=== PATIENT | male | born 1930 | race Caucasian/White ===

== ENCOUNTER → 2016-10-27 | Outpatient (CLI) | payer MEDICARE, OTHER ==
[~2016-10-27] MED LIST: ASPIRIN CHILDRE81 MG PO; ASPIRIN81 M1 PO; ATIVAN0.5 MG PO; B121000 MCG/2 PO; CARDIZEM CD300 MG PO; CATAPRES0.2 M1 PO; CIPRO500 MG PO; COREG3.125 MG PO; COZAAR50 M1 PO; COZAAR50 MG PO; DOXYCYCLINE100 M3 PO; FLOMAX0.4 MG PO; FUROSEMIDE20 MG PO; HYZAAR 50/12.5M1 TAB PO; JANUVIA50 MG PO; K-Dur 20MEQ20 MEQ PO; K-TAB20 MEQ PO; LANTUS100 U/ML SC; LASIX20 MG PO; LEVAQUIN750 MG PO; LORAZEPAM0.5 MG PO; NITROGLYCERIN0.4 MG PO; PLAVIX75 M1 PO; PLAVIX75 MG PO; PREDNISONE10 MG PO; PROSCAR5 M1 PO; SYNTHROID RP0.1 MG PO; SYNTHROID,LEV112 MCG PO; SYNTHROID0.025 MG PO; TOPROL XL25 MG PO; TOPROL XL50 M1 PO; VITAMIN D50000 I3 PO; XOPENEX0.63 MG INH; ZOCOR40 MG PO
== END | disposition home or self-care (01) ==
LOC: US 14:58
DX: M79.605 Pain in left leg (principal); M79.604 Pain in right leg; R60.0 Localized edema

== ENCOUNTER 2016-12-29 16:11 | Inpatient (IN) | payer MEDICARE, OTHER ==
[~2016-12-29] VITALS: Ht 182.9 cm; Wt 75.8 kg
--- NOTE | ~2016-12-29 | PR ---
[place], [place] PROGRESS NOTE [id number] UNIT #: [id number] ROOM: 409 DOCTOR: CHRISTINA SANCHES MD,KENYA BIRTHDATE: [birth year] DOS: 01/04/2017 SUBJECTIVE: He has been noted without any acute respiratory distress at this time, comfortably resting, sitting on the chair. Denies any abdominal pain. OBJECTIVE: VITAL SIGNS: For the patient which has been recorded showed the temperature noted normal, respiratory rate 18, heart rate 55, blood pressure 122/72-155/82. Pulse oxygen saturation on room air was 96% saturation. HEENT: Shows age-related changes. NECK: Supple. CARDIOVASCULAR SYSTEM: S1, S2 audible. LUNGS: Showed [id number] decreased breath sound in the right lower lung base. ABDOMEN: Soft and nontender. LABORATORY DATA: Cytology of the pleural fluid noted as benign. The chest x-ray that was done for the patient yesterday was reviewed for this patient shows mild recurrence of the small pleural fluid for the patient at this time. Otherwise, the lung remained expanded. IMPRESSION: The patient with negative cytology with an exudative pleural fluid, the etiology remains unclear with history of atrial fibrillation, congestive heart failure and others. PLAN OF TREATMENT: No change in plan of management. No intervention. The patient with recurrent pleural fluid has been noted as the amount of the fluid was noted small. Continue patient on diuretic therapy. Usual care. All other supportive plan of management and care. KENYA VASQUEZ MD CM:PNTRANS [id number] KENYA SANCHES MD 01/04/17 1129 interface
--- NOTE | ~2016-12-29 | CON ---
[place], [place] REPORT OF CONSULTATION NAME: MERVIN SARABIA UNIT #: [id number] ROOM: 409 DOCTOR: STEFANI VICKERS MD BIRTHDATE: [birth year] DOS: HISTORY OF PRESENT ILLNESS: The patient is an 86-year-old gentleman admitted under Dr. Nicole's service and seen at her request. The patient was admitted yesterday following a fall while shopping and in the state of confusion. During the investigation, was also found to have urinary retention. The Medley catheter was therefore placed and was found to have about over 800-900 mL of retention. He had a CT scan of the abdomen performed, which showed bilateral hydronephrosis and also has a pleural effusion. The patient is moderately confused; however, the patient is not able to tell the list of medication, but is found to be on tamsulosin and finasteride. He denies of any surgical intervention. Denies gross hematuria or recurrent UTI or urinary incontinence. PHYSICAL EXAMINATION: GENERAL: He is alert; however, is pleasantly confused. He is time and place. VITAL SIGNS: Stable and he is afebrile. ABDOMEN: Soft, nontender. Bladder not distended. The patient on a Medley catheter draining slightly bloody urine. GENITOURINARY: Scrotal contents are normal. Digital examination shows prostate moderately large size about 20-30 grams with no nodules or an induration suggestive for malignancy. ASSESSMENT: Urinary retention with hydronephrosis, most likely hydronephrosis secondary to chronic bladder outlet obstruction. PLAN: The patient is on a Medley catheter. I will keep the Medley catheter at least for a week. I discussed the overall management and long time management and prognosis with his granddaughter and initially explained to that will follow the list in invasive management such as Medley catheter for a week or two and then give him a trial of voiding. If unable to void, the patient will then have choice of a going through transurethral resection or a maintenance on a Medley catheter or a suprapubic cystostomy. I advised family that I will follow the patient in the office after the discharge from the present hospitalization. We will follow the patient if needed. Otherwise, we will follow him in the office after the discharge. STEFANI VICKERS MD CM:CONSTR:REPORT OF CONSULTATION 1401 12/31/16 0200 interface
--- NOTE | ~2016-12-29 | PR ---
[place], [place] PROGRESS NOTE NAME: MERVIN SARABIA UNIT #: [id number] ROOM: 409 DOCTOR: CHRISTINA SANCHES MD,KENYA BIRTHDATE: [birth year] DOS: 01/02/2017 PULMONARY FOLLOWUP SUBJECTIVE: He has been noted comfortable at this time without any distress. The patient denies symptoms of chest pain. He has been noted comfortable at this time. OBJECTIVE: VITAL SIGNS: Normal temperature, respiratory rate 20, heart rate 88, blood pressure 145/76. The pulse oxygen saturation on room air 96% saturation. HEENT: Examination shows no acute change. NECK: Supple. CARDIOVASCULAR: S1, S2 audible. LUNGS: Noted without any wheezing or crackles. ABDOMEN: Soft, nontender. LABORATORY DATA: There were no labs done today. Cytology of pleural fluid was pending. IMPRESSION: Exudative pleural fluid, status post thoracentesis for the acute respiratory symptoms, which has been noted stable at the present time. PLAN OF TREATMENT: Monitoring results of cytology. Continuation of the previous other medical management and plan of care as previously. Usual care. All other supportive plan of therapy. No change in the treatment at this time will be recommended. Supportive care. KENYA VASQUEZ MD CM:PNTRANS [phone] KENYA SANCHES MD 01/02/172125 interface
--- NOTE | ~2016-12-29 | PR ---
[place], [place] PROGRESS NOTE [id number] #: [id number] ROOM: 409 DOCTOR: CHRISTINA SANCHES MD,KENYA BIRTHDATE: [birth year] DOS: 01/05/2017 PULMONARY PROGRESS NOTE SUBJECTIVE: The patient has been noted comfortably resting in his bed, has Medley catheter in place. He has not been noted with any symptoms of chest pain or any abdominal pain. OBJECTIVE: VITAL SIGNS: Normal temperature, respiratory rate 20, heart rate 85, blood pressure 144/86. The pulse oxygen saturation on room air 95% saturation. HEENT: Examination shows no acute change. NECK: Supple. CARDIOVASCULAR SYSTEM: S1, S2 audible. LUNGS: Noted for this patient with decreased breath sounds in the right lower lung. ABDOMEN: Soft, nontender. LABORATORY DATA: No new labs were done today. The chest x-ray yesterday shows some recurrence of the pleural fluid; however, today shows some recurrence of right pleural fluid for the patient; however, the fluid was not noted significantly large. IMPRESSION: 1. Exudative pleural fluid, status post thoracentesis, negative malignancy for the patient, exact etiology to be determined. 2. History of congestive heart failure, treated with diuretics. PLAN OF TREATMENT: No changes from the pulmonary standpoint. Continue the current therapy, plan of care. Usual care, other supportive plan of management and treatments. KENYA VASQUEZ MD CM:PNTRANS 07 [phone] KENYA SANCHES MD 01/05/172055 interface
--- NOTE | ~2016-12-29 | PR ---
[place], [place] PROGRESS NOTE NAME: MERVIN SARABIA UNIT #: [id number] ROOM: 409 DOCTOR: CHRISTINA SANCHES MDKENYA BIRTHDATE: [birth year] DOS: 12/31/2016 PULMONARY CONSULTATION AND EVALUATION AND MANAGEMENT SUBJECTIVE: The patient has been noted without any acute new change, shortness of breath of the patient noted some at rest. The patient denies any symptoms of chest pain. The thoracentesis was planned to be done today with assessment of the right thorax of the patient with ultrasound. The patient has not been noted with any acute hemodynamic instability. OBJECTIVE: VITAL SIGNS: Showed normal temperature, respiratory rate 20, heart rate 71, blood pressure 142/81. Intake is 1200, output 1000 mL recorded. The pulse oxygen saturation on room air 96 % saturation noted. HEENT: Examination shows no new change. NECK: Supple. CARDIOVASCULAR SYSTEM: S1, S2 is audible. LUNGS: The patient was noted with absent breaths on the right lower portion of the lung as previously unchanged. There were no crackles or wheezing. ABDOMEN: Soft, nontender. LABORATORY DATA: The BMP of the patient this morning was noted as normal. CBC this morning for the patient was noted normal as well. CK-MB and troponin for the patient was noted as normal yesterday. Urine culture of the patient reported no bacterial growth from 12/30/2016. IMPRESSION: 1. The patient who has been currently admitted to the hospital and being treated for the medical management of acute congestive heart failure with a systolic dysfunction. Accumulation of the pleural fluid for this patient will require further assessment. 2. Bilateral hydronephrosis noted on CT scan of the abdomen with hydroureter for the patient. Etiology unclear with history of benign prostatic hypertrophy as well. 3. Muscle deconditioning as well and/or debility. PLAN OF TREATMENT: Proceed to the ultrasound-guided thoracentesis of the right hemithorax. In the meantime, continue on the previous treatment, plan of management as in progress. Diuretic therapy as the plan of management and cardiac assessment is in progress. Thanks for allowing me to participate in the care of this patient. [place], [place] PROGRESS NOTE NAME: MERVIN SARABIA UNIT #: [id number] ROOM: 409 DOCTOR: KENYA ANTONY MD BIRTHDATE: [birth year] KENYA VASQUEZ MD CM:PNTRANS [id number] KENYA SANCHES MD 01/01/17 0454 interface
--- NOTE | ~2016-12-29 | PR ---
[place], [place] PROGRESS NOTE NAME: MERVIN SARABIA [facility] #: [id number] UNIT #: [id number] ROOM: 409 DOCTOR: LISBETH ZAVALA MD BIRTHDATE: [birth year] DOS: 01/01/2017 CARDIOLOGY PROGRESS NOTE SUBJECTIVE: The patient was seen with his granddaughter at the bedside today. He is much more awake and alert than yesterday. He denies any chest pain, palpitations or lightheadedness. He does admit that he has been weak and he tells me that he walks with a cane or walker at home, but has not been out of bed since he has been here. PHYSICAL EXAMINATION: VITAL SIGNS: Today, his pulse is 81 and ____ irregular. Blood pressure is 104/57. He is afebrile. He weighs 75.8 kilograms with a body mass index of 22.7. NECK: Supple. He has no jugular distention. Carotids are full. I heard no bruits. LUNGS: Respirations were unlabored. His chest was clear. HEART: Had an irregularly irregular rhythm without murmurs or gallops. ABDOMEN: Benign. EXTREMITIES: Showed no edema. The legs were wrapped with Unna boots. LABORATORY DATA: An echocardiogram was done on 12/31/2016 and showed normal left ventricular size with global hypokinesis, overall ejection fraction was 40-45%. Diastole could not be assessed. The patient has moderate left atrial enlargement and mild aortic insufficiency with a mildly dilated ascending aorta at 42 mm. CBC today shows a hemoglobin of 14, hematocrit of 42.3. There are 7400 white cells and 226,000 platelets. Sodium is 141, potassium 3.6, BUN 19, creatinine 0.98. IMPRESSION: 1. Atrial fibrillation with slow ventricular response. 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 2. History of coronary artery disease, status post angioplasty and stenting. Details are not currently available. 3. Dementia. 4. Chronic combined systolic and diastolic heart failure. PLAN: The patient does appear to be doing better today. For the present time, we will withhold any beta blockers since he was excessively bradycardic while taking metoprolol prior to admission. If he does develop chest pain, we will try to manage him with nitrates, amlodipine, etc. I had a long conversation with multiple family members and especially his on 12/31/2016 regarding his stroke risk. His is adamant that she does not want him on warfarin or any of the direct acting agents. For the present time, we will continue Plavix as he was on prior to admission. [place], [place] PROGRESS NOTE NAME: MERVIN SARABIA UNIT #: [id number] ROOM: 409 DOCTOR: LISBETH ZAVALA MD BIRTHDATE: [birth year] We will continue to follow him with his primary physicians. I thank the hospitalist group for asking our advice regarding his care. LISBETH ZAVALA MD CM:PNTRANS [phone] LISBETH ZAVALA MD 01/02/17 0331 interface
--- NOTE | ~2016-12-29 | PROC NOTE ---
[place], [place] PROCEDURE NOTE NAME: MERVIN SARABIA UNIT #: [id number] ROOM: 409 DOCTOR: CHRISTINA SANCHES MD,KENYA BIRTHDATE: [birth year] DOS: 12/31/2016 PROCEDURE: Left-sided thoracentesis ultrasound guidance. PREOPERATIVE DIAGNOSIS: The patient with large right pleural fluid. POSTOPERATIVE DIAGNOSIS: The removal of 1500 mL of pleural fluid for the patient mildly hemorrhagic for the patient right pleural space without any difficulty. PROCEDURE DESCRIPTION: Informed consent obtained from the patient's family members. The patient was placed in sitting position. I have personally performed the ultrasound of the right chest for the patient. Large pocket of pleural fluid was isolated and marked. Skin was cleaned with chlorhexidine solution. After that, 1% lidocaine administered on the skin and intercostal space. The right pleural space was entered during administration of local anesthetic, the patient confirming the exact site of thoracentesis. Small incision given in the skin. [place] thoracentesis introduced through the incision into the right pleural space without any difficulty. A total of 1500 mL of pleural fluid was drained for this patient in the syringe and vacuum bottle without difficulty. Chest x-ray of the patient that was done postprocedure shows marked reexpansion of the lung with resolution of the pleural fluid, minimal fluid, but present in the right side. Small left-sided pleural fluid was also noted. Pleural fluid sent for all the appropriate testing with the patient including cytology, cultures, chemistry and cell count with differential and cytology. KENYA VASQUEZ MD CM:PROCNOTE:PROCEDURE NOTE [phone] KENYA SANCHES MD
--- NOTE | ~2016-12-29 | CON ---
[place], [place] REPORT OF CONSULTATION NAME: MERVIN SARABIA UNIT #: [id number] ROOM: 409 DOCTOR: DIANA COLLINS DPM BIRTHDATE: [birth year] DOS: 01/05/2017 SUBJECTIVE: The patient presents as an 86-year-old male who is well known to our practice. The patient presents weekly for Unna boot changes. The patient has had a history of venous insufficiency and venous ulcerations he does not have the Unna boots applied weekly. PAST MEDICAL HISTORY: The patient has a past medical history of benign prostatic hyperplasia, coronary artery disease, chronic AFib, chronic kidney disease stage 3, COPD, dysphagia, frequent falls, hyperlipidemia, hypertension, hypothyroidism, normocytic anemia, QT prolongation, systolic CHF. PAST SURGICAL HISTORY: Abdominal hernia, history of cardiac cath, history of prostate surgery. SOCIAL HISTORY: Denies alcohol, illicit drug, or tobacco use. FAMILY HISTORY: Father of cardiac and kidney disease. Mother of Alzheimer's disease. ALLERGIES: CODEINE. LOWER EXTREMITY EXAMINATION: The patient's Unna boots, which were applied last week at the office are in good condition still at this time with no loosening. No breakthrough bleeding or sign of complication, no acute pain noted. ASSESSMENT: Edema, venous insufficiency, bilateral lower extremity. PLAN: We will change the Unna boots later this week and monitor the patient for any changes, but at this point, they could be left intact as they are still in good condition. DIANA COLLINS DPM CM:CONSTR:REPORT OF CONSULTATION 1235 01/05/17 2224 interface
--- NOTE | ~2016-12-29 | PR ---
[place], [place] PROGRESS NOTE NAME: MERVIN SARABIA UNIT #: [id number] ROOM: 409 DOCTOR: CHRISTINA SANCHES MD,KENYA BIRTHDATE: [birth year] DOS: 01/01/2017 PULMONARY PROGRESS SUBJECTIVE: The patient has a thoracentesis done yesterday, about 1500 mL of pleural fluid removed from the right pleural space. He denies any symptoms of chest pain or any abdominal pain. The patient has been noted without any symptoms of hemoptysis. OBJECTIVE: VITAL SIGNS: Shows normal temperature, respiratory rate 18, heart rate 75, blood pressure 136/78 recorded this morning. Intake is 1200, the output 900 mL recorded ____ containing the pleural fluid removal. The pulse oxygen saturation on room air was 95% saturation. HEENT: Age-related changes. NECK: Supple. CARDIOVASCULAR SYSTEM: S1, S2 audible. LUNGS: For the patient noted without any wheezing or crackles today. ABDOMEN: Soft, nontender. LABORATORY DATA: Pleural fluid analysis of yesterday shows 525 WBC ____ differential. The glucose noted 91, total protein 4.0. LDL 136, cholesterol 57, albumin 2.3. Amylase normal as 26, triglycerides normal as 11. The culture of the pleural fluid for the patient does not show any abnormal bacterial growth. There were no organisms seen. The chest x-ray ____ pleuracentesis showed marked improvement in aeration of the right lung as well. Small left-sided pleural fluid was suspected. IMPRESSION: 1. The patient with an exudative pleural fluid which has been removed for this patient from the right pleural space. At this time, the cytology is pending. The culture was not noted consistent with any empyema or other etiology. The exact etiology ____ pleural fluid at this time was unknown. 2. Atrial fibrillation, another problem of the patient which has been already being addressed by the Cardiology Services by Dr. Desai. PLAN OF TREATMENT: Continuation of the current plan of management, monitor cytology, remaining pleural fluid assessment. Other supportive plan and management. Usual care. No further treatment changes. The echocardiogram for this patient shows systolic dysfunction for the patient with moderate reduction of the left ventricular ejection fraction. [place], [place] PROGRESS NOTE NAME: MERVIN SARABIA UNIT #: [id number] ROOM: 409 DOCTOR: KENYA ANTONY MD BIRTHDATE: [birth year] KENYA VASQUEZ MD CM:PNTRANS [id number] [id number] KENYA SANCHES MD 01/02/17 0121 interface
--- NOTE | ~2016-12-29 | PR ---
[place], [place] PROGRESS NOTE [id number] #: [id number] ROOM: 409 DOCTOR: CHRISTINA SANCHES MD,KENYA BIRTHDATE: [birth year] DOS: 01/03/2017 SUBJECTIVE: He has been comfortably resting on the bed at this time. He has not been noted symptoms of chest pain, coughing or any sputum expectoration at the present time. The oxygen supplement, continue with the nasal cannula. OBJECTIVE: VITAL SIGNS: Normal temperature, respiratory rate of 20, heart rate 75, blood pressure 120/68. Intake for the patient 960, output 1500 mL. The pulse oxygen saturation on room air 96% saturation recorded. HEENT: Shows head was atraumatic. Eyes nonicterus. NECK: Supple. CARDIOVASCULAR SYSTEM: S1, S2 audible. LUNGS: Noted without any wheezing or crackles at the present time. ABDOMEN: Soft and nontender. IMPRESSION: 1. The patient with transudative pleural fluid, status post thoracentesis, pending cytology. CBC was noted normal. The respiratory status, the patient has been noted very stable at this time. 2. The patient with acute congestive heart failure as well. 3. Atrial fibrillation. PLAN OF TREATMENT: Repeat chest x-ray of patient this morning to reassess the pleural fluid reaccumulation. Monitoring results of the pleural fluid. Other supportive therapy, plan of management. Usual treatment and care. KENYA VASQUEZ MD CM:PNTRANS [id number] KENYA SANCHES MD 01/03/171828 interface
--- NOTE | ~2016-12-29 | CON ---
[place], [place] REPORT OF CONSULTATION NAME: [facility]ERVIN SARABIA [facility] [id number] UNIT #: [id number] ROOM: 409 DOCTOR: CHRISTINA SANCHES MDKENYA BIRTHDATE: [birth year] DOS: 12/30/2016 PULMONARY CONSULTATION EVALUATION MANAGEMENT REASON FOR CONSULTATION: To assess the patient for pleural effusions. HISTORY OF PRESENT ILLNESS: This is an 86-year-old elderly male, who has been unable to give me any history. The patient's history has been obtained from the patient for essentially review of the medical record of the patient by the physicians and other documentation by the nursing staff. He has been admitted under the care of the hospitalist service 12/29/2016. The patient was brought to the Emergency Room as the patient was noted fallen on the ground. The patient has been noted at [facility] where he stood up from his wheelchair and attempted to brace himself with the cane. The patient brought to the hospital for further assessment. The patient was reported with pain in the left side of the hip and neck that was noted down as the patient fell down. He has been admitted to the hospital at this time. He does not have any acute distress at the time of the current assessment. The patient unable to provide me any history more accurately. He has been reported with symptoms of hemoptysis. Has not reported any history of chest pain. REVIEW OF SYSTEMS: Could not be completed. The patient unable to give me any history accurately. PAST MEDICAL HISTORY: Was reported as; 1. History of congestive heart failure with cardiomyopathy, left ventricular ejection fraction was reported as 30% in the past. 2. History of reported atrial fibrillation. 3. Coronary artery disease. 4. BPH. 5. Chronic kidney disease stage III. 6. Oropharyngeal dysphagia. 7. History of frequent falls. 8. Hyperlipidemia. 9. Ambulatory dysfunction. 10. Essential hypertension. 11. ____. PAST SURGICAL HISTORY: 1. The patient noted with an abdominal hernia repair. 2. Cardiac catheterization with coronary artery stent insertion. 3. Surgery for the prostate enlargement. SOCIAL HISTORY: The patient was reported as patient lives at home. There was no history of alcohol or illicit drug use. Tobacco use described. FAMILY HISTORY: Reported as heart problem and kidney problems in the father, who is . Mother from complication related to Alzheimer's disease. [place], [place] REPORT OF CONSULTATION NAME: MERVIN SARABIA UNIT #: [id number] ROOM: 409 DOCTOR: CHRISTINA SANCHES MD,KENYA BIRTHDATE: [birth year] HOME MEDICATIONS: Reported as use of the Plavix, finasteride, Lasix, levothyroxine, metoprolol, simvastatin, and Flomax. DRUG ALLERGIES: Reported allergies to CODEINE. PHYSICAL EXAMINATION: GENERAL: An 86-year-old elderly male, who has been noted comfortable lying in the bed without any distress. Height of 6 feet, weight of 167 pounds, BMI of 22.6. VITAL SIGNS: Reported as normal temperature, respiratory rate 18-20, heart rate 62-79, 54 noted on admission, blood pressure recorded as elevated on admission 200/102 ____ noted 132/87. Pulse oxygen saturation of the patient was recorded as 97% on room air. HEENT: Head was atraumatic. Eyes nonicterus. NECK: Supple. CARDIOVASCULAR: S1, S2 is audible. LUNGS: Decreased breath sounds noted in the lower portion of the lungs bilaterally, greater on the right than the left side. ABDOMEN: Flat, soft, nontender. EXTREMITIES: Shows no edema, clubbing or cyanosis. MUSCULOSKELETAL: No deformities. SKIN: Showed no gross abnormal lesions or rashes. CENTRAL NERVOUS SYSTEM: Unable to assess accurately, does not show any gross focal deficit. Remaining examination could not be performed. LABORATORY DATA: CT scan of the head for the patient on 12/29/2006. The patient reported without any acute abnormalities. CT scan of the cervical spine for the patient was also done for this patient shows no acute deformities or fracture. The left hip ____ was also obtained. The patient on 12/29 showed degenerative changes without any acute fracture. CT scan of the abdomen and pelvis was done yesterday as well for the patient, which has been described. In the report, radiology says bilateral moderate hydronephrosis. The patient hydroureter with distended bladder. Uncomplicated chronic diverticulosis was also described with findings of pleural fluid noted in lower portion CT scan of the thorax on the right side. CBC of 12/30/2016 normal. CK-MB, troponin yesterday and this morning and 3 sets were normal. BNP this morning normal. BUN, creatinine and potassium 3.2. The chest x-ray of the patient that was done for the patient shows findings of pleural fluid for the patient noted on the right side with cardiomegaly. Mild scoliosis of the thoracic spine was also visible. CT scan of the chest for the patient that was done for the patient yesterday as well for this patient was noted with findings of moderate to large pleural fluid noted on the right side with ____ atelectasis. The left lung was noted clear. There were no abnormal pulmonary infiltration for the patient was noted in the remaining lungs without any nodules or significant visible lymphadenopathy. IMPRESSION: 1. The patient who has been currently admitted to the hospital after a fall. The patient noted with findings of acute congestive heart failure, systolic [place], [place] REPORT OF CONSULTATION NAME: MERVIN SARABIA UNIT #: [id number] ROOM: [facility] DOCTOR[facility] [birth year] dysfunction and pleural fluid, etiology of pleural fluid would be considered congestive heart failure; however, additional etiologies to be assessed for the patient thoracentesis to rule out any underlying infection or malignancy or others. 2. Bilateral hydronephrosis. The patient with hydroureter noted for this patient with bladder distention, possibility of obstruction and prostate level would be considered. The patient does have past history of BPH with the surgical intervention. 3. Elderly age for this patient was also noted muscle deconditioning with poor balance. The patient has history of multiple falls in the past as well. PLAN OF TREATMENT: At this time, the patient will be recommended thoracentesis, which will be therapeutic and diagnostic at the same time for the patient for the right-sided thoracentesis. I believe the patient is not noted fit to be give me consent because of current mental status of the patient and other physical debilities the consent will be obtained from the family members. The patient is agreeable for thoracentesis, it could be done tomorrow morning at the bedside. In the meantime, continue current plan of management optimize the management of congestive heart failure. Usual care, other supportive therapy, plan of management and other care. Further treatment changes will be done based on the progression of the illness. Thank you for allowing me to participate in the care of this patient. KENYA VASQUEZ MD CM:CONSTR:REPORT OF CONSULTATION 1326 12/30/16 1810 interface
--- NOTE | ~2016-12-29 | CON ---
[place], [place] REPORT OF CON[facility]ULTATION [id number] UNIT #: [id number] ROOM: 409 DOCTOR: LISBETH ZAVALA MD BIRTHDATE: [birth year] DOS: 12/31/2016 REASON FOR CONSULTATION: Bradycardia. HISTORY OF PRESENT ILLNESS: Kirit Sarabia was seen at his bedside with multiple family members, especially his in attendance. He is an 86-year-old man, who does have a history of atherosclerotic heart disease, atrial fibrillation, and chronic combined systolic and diastolic heart failure. Records have shown that he has had a slow response to his atrial fibrillation for several years. Despite this, he has been maintained on beta blockers because of his history of coronary artery disease. The patient did have a cardiac catheterization with stent placement in 02/2008. At that time, he was found to have a 70% stenosis of the LAD with a 50-60% stenosis of the circumflex. The right coronary artery was totally occluded with collateral flow. Ejection fraction was 55%. Details of the patient's stent placement are not currently available. The patient denies any chest pain. He has had lightheadedness. He presented to the hospital on this occasion with a fall from a wheelchair at the [facility]. He was noted on admission to have a right pleural effusion, severe hypertension, and renal insufficiency and therefore was admitted to the hospital. The patient currently is lying almost flat in bed. He appears comfortable and denies any chest pain or palpitations. He did fall asleep several times during the interview and examination. PAST MEDICAL HISTORY: Includes: 1. Coronary artery disease, status post catheterization 01/12/2008. The left main was calcified. The LAD had a long 70% stenosis. Circumflex had a mid vessel 50-60% stenosis. Right coronary artery was occluded. Reportedly, the patient did have a stent, but those details are not currently available. 2. Permanent atrial fibrillation. 3. Slow heart rate response to atrial fibrillation. 4. Chronic renal insufficiency. 5. Chronic combined systolic and diastolic heart failure. 6. Essential hypertension. 7. Hypothyroidism. 8. Benign prostatic hypertrophy with urinary retention. MEDICATIONS: Prior to admission, clopidogrel 75 mg daily, finasteride 5 mg daily, furosemide 20 mg daily, levothyroxine 112 mcg daily, metoprolol 50 mg b.i.d., simvastatin 40 mg at bedtime, and tamsulosin 0.4 mg daily. ALLERGIES: CODEINE. FAMILY HISTORY: He is not currently on any systemic anticoagulation because of severe bruising on his arms when he was on Eliquis. In addition, his is violently opposed to him taking Coumadin since their daughter from hemorrhage while taking Coumadin for severe valvular heart disease. [place], [place] REPORT OF CONSULTATION NAME: KIRIT SARABIA UNIT #: [id number] ROOM: [facility] DOCTOR: LISBEHT ZAVALA MD BIRTHDATE: [birth year] REVIEW OF SYSTEMS: Difficult because of the patient's lethargy and sleepiness. He denies any current chest pain and states that since he had a thoracentesis, his breathing has improved. He does admit that his legs are weak. He did not have any other complaints during my review of systems. SOCIAL HISTORY: The patient is and lives with his . He is fairly debilitated. He does not currently consume alcohol or cigarettes. PHYSICAL EXAMINATION: GENERAL: The patient is an elderly white male, who is awake, alert and oriented. VITAL SIGNS: Pulse is 66 and irregularly irregular. Blood pressure is 110/70. He is afebrile. He weighs 75.8 kilograms with a body mass index of 22.7. HEENT: Head is normocephalic, atraumatic. Extraocular muscles are intact. Sclerae are clear. Pupils are equal, round and reactive to light. The oral mucosa is moist. Tongue is midline. NECK: Supple. He does have no jugular distention or hepatojugular reflux at this time. Carotids are full. I heard no bruits. LUNGS: Respirations were unlabored. He had decreased breath sounds at the bases, but no wheezes or rales. CARDIOVASCULAR: His heart had an irregularly irregular rhythm. He had a grade 2/6 holosystolic murmur at the apex. No diastolic murmurs are present. The PMI is not displaced. There is no precordial heave, lift, or thrill. ABDOMEN: Soft and normally active without masses, organomegaly, or bruits. EXTREMITIES: Showed no edema, although they are wrapped in an Unna boot bilaterally. LABORATORY DATA: I reviewed his electrocardiogram. It showed atrial fibrillation with a controlled ventricular response at a rate of 58. He did have left ventricular hypertrophy and poor precordial R-wave progression. Chest x-ray on admission showed a moderate size right-sided pleural effusion. Carotid ultrasound study showed less than 50% stenoses in the internal carotid arteries bilaterally. CT scan of the chest showed moderately large right pleural effusion with dependent atelectasis. CT scan of the upper poles of the kidney suggested bilateral hydronephrosis. Hemoglobin is 14 with hematocrit 42.3. There is 7400 white cells and 226,000 platelets present. INR is 1.1. Sodium 141, potassium 3.6, BUN 19, creatinine 0.98. Troponin is less than 0.015. TSH is 1.97. I reviewed the monitor strips. He does have atrial fibrillation with slow ventricular response. He did not have any prolonged pauses over 2 seconds, but did have periods where his heart rate was in the upper 30s. He did not have any tachycardias. IMPRESSION: 1. Atrial fibrillation with slow ventricular response while taking metoprolol. 2. History of coronary artery disease status post angioplasty and stenting per [place], [place] REPORT OF CONSULTATION NAME: KIRIT SARABIA UNIT #: [id number] ROOM: 409 DOCTOR: LISEBTH ZAVALA MD BIRTHDATE: [birth year] report. Details are not currently available. 3. Dementia. 4. Chronic atrial fibrillation. 5. Chronic combined systolic and diastolic heart failure. PLAN: The patient is being diuresed gently as needed, but does not appear to be dramatically fluid overloaded at this time. His bradycardia is probably exacerbated by metoprolol since he does not currently have any angina. I stopped metoprolol at least temporarily. We can decide whether we want to start a beta magalys in a smaller dose depending on his heart rate response once the metoprolol is out of his system. I did speak at some length to the patient's family about his risk of stroke and stroke prophylaxis. His CHADS-VASc score is at least 6, indicating a very high risk of cardioembolic phenomena exceeding 10% per year. The patient's does not want him to be on Eliquis because he bruised badly when he was on Eliquis in the past. She is firmly against Pradaxa and Xarelto as well because of what she saw on TV. She is absolutely against Coumadin since her daughter of hemorrhagic shock while on Coumadin. It does sound as though however, her daughter was incredibly ill with severe valvular disease at the time of her . At this point, the patient's is not ready for him to take systemic anticoagulation even though she does understand he is at high risk for stroke. She wondered why we could not just continue clopidogrel. I certainly have no objection to clopidogrel. I just do not think it will work very well, but since that is her informed decision, we will continue the drug. We will observe his heart rate off of beta blockers and make further recommendations about heart rate control as time goes on. I thank the hospitalist group for asking our advice regarding his care. LISBETH ZAVALA MD CM:CONSTR:REPORT OF CONSULTATION 1804 01/01/17 0710 interface
--- NOTE | ~2016-12-29 | PR ---
[place], [place] PROGRESS NOTE NAME: MERVIN SARABIA UNIT #: [id number] ROOM: 409 DOCTOR: CODY CHAKRABORTY MD BIRTHDATE: [birth year] DOS: 01/02/2017 CARDIOLOGY FOLLOWUP VISIT NOTE REASON FOR VISIT: Atrial fibrillation and coronary artery disease. HISTORY OF PRESENT ILLNESS: The patient is alert. Denies any chest pain or shortness of breath. No PND, no orthopnea, no dizziness. RHYTHM STRIPS: The patient was in atrial fibrillation. PHYSICAL EXAMINATION: VITAL SIGNS: Blood pressure 160/90, pulse 84, respiratory rate is 18. GENERAL: Alert, comfortable, in no acute distress. HEAD AND NECK: Pupils are round, equal, no jaundice. NECK: Supple, no distended neck veins, no carotid bruit. CHEST: Symmetrical, nontender. LUNGS: Few scattered rhonchi. HEART: Slightly irregular. No S3. Grade 1/6 systolic murmur. ABDOMEN: Bowel sounds normal. EXTREMITIES: Showed trace edema. IMPRESSION: 1. Atrial fibrillation, patient declined anticoagulation. 2. Coronary artery disease, status post stents. 3. Bradyarrhythmia, currently stable. 4. Chronic diastolic heart failure, stable. RECOMMENDATIONS: 1. Continue current medication. 2. Monitor his heart rates and blood pressures. 3. Continue his Plavix and the patient declined anticoagulation. 4. Cardiology will see as needed during the weekend. 5. There is no family at bedside at the time of my examination. [place], [place] PROGRESS NOTE NAME: MERVIN SARABIA UNIT #: [id number] ROOM: 409 DOCTOR: CODY CHAKRABORTY MD BIRTHDATE: [birth year] CODY CHAKRABORTY MD CM:PNTRANS 23 [phone] CODY CHAKRABORTY MD 01/02/17 260 interface
[2016-12-29 16:21] VITALS: BP 178/98
[2016-12-29] MEDS ORDERED: TAMSULOSIN HCL0.4 MG PO (17:32)
[2016-12-29] MEDS ORDERED: METOPROLOL SUCC50 M1 PO (17:32)
[2016-12-29 22:00] VITALS: BP 200/102
[2016-12-29 22:19] LABS: BASO % 0.5 % (0.0-1.0); EOS # 0.3 10*3/uL (0.0-0.4); EOS % 3.4 % (1.0-4.0); HEMATOCRIT 44.6 % (42.0-52.0); HEMOGLOBIN 14.9 g/dl (14.0-18.0); LYMPH # 1.8 10*3/uL (1.3-4.4); LYMPH % 22.9 % (27.0-41.0); MEAN CELL VOLUME 91.2 fl (80.0-94.0); MEAN CORPUSCULAR HGB 30.5 pg (27.0-31.0); MEAN CORPUSCULAR HGB CONC 33.4 g/dl (33.0-37.0); MEAN PLATELET VOLUME 9.7 fl (9.6-12.3); MONO # 0.6 10*3/uL (0.1-1.0); MONO % 8.3 % (3.0-9.0); NEUT % 64.6 % (47.0-73.0); PLATELET COUNT AUTOMATED 237 10*3/uL (130-400); RED BLOOD COUNT 4.89 10*6/uL (4.50-5.90); RED CELL DISTRI WIDTH 12.9 % (0-14.5); WHITE BLOOD COUNT 7.7 10*3/uL (4.8-10.8)
[2016-12-29 22:34] LABS: ALBUMIN 3.2 gm/dl (3.1-4.5); ALKALINE PHOSPHATASE 93 U/L (45-117); BILIRUBIN, TOTAL 0.8 mg/dl (0.2-1.0); BUN 17 mg/dl (7-24); CARBON DIOXIDE 28 mmol/L (21-32); CHLORIDE 105 mmol/L (98-107); EST GLOM FILT AFRICAN AMERICAN > 60 ml/min; GLUCOSE 141 mg/dL (65-99); POTASSIUM 3.3 mmol/L (3.5-5.1); SGOT/AST 16 IU/L (3-35); SGPT/ALT 18 U/L (12-78); SODIUM 142 mmol/L (136-145); TOTAL PROTEIN 6.8 gm/dL (6.4-8.2)
[2016-12-30] VITALS: BP 198/100
[2016-12-30 00:40] LABS: CKMB 1.3 ng/ml (0.5-3.6); TROPONIN I 0.019 ng/ml (<0.045)
[2016-12-30 04:00] VITALS: BP 144/85
[2016-12-30 06:45] LABS: BASO % 0.4 % (0.0-1.0); EOS # 0.1 10*3/uL (0.0-0.4); EOS % 1.1 % (1.0-4.0); HEMATOCRIT 43.9 % (42.0-52.0); HEMOGLOBIN 14.6 g/dl (14.0-18.0); LYMPH # 0.8 10*3/uL (1.3-4.4); LYMPH % 9.5 % (27.0-41.0); MEAN CELL VOLUME 91.3 fl (80.0-94.0); MEAN CORPUSCULAR HGB 30.4 pg (27.0-31.0); MEAN CORPUSCULAR HGB CONC 33.3 g/dl (33.0-37.0); MEAN PLATELET VOLUME 9.7 fl (9.6-12.3); MONO # 0.6 10*3/uL (0.1-1.0); MONO % 6.5 % (3.0-9.0); NEUT % 82.1 % (47.0-73.0); PLATELET COUNT AUTOMATED 233 10*3/uL (130-400); RED BLOOD COUNT 4.81 10*6/uL (4.50-5.90); RED CELL DISTRI WIDTH 12.7 % (0-14.5); WHITE BLOOD COUNT 8.5 10*3/uL (4.8-10.8)
[2016-12-30 06:51] LABS: CKMB 1.7 ng/ml (0.5-3.6); CPK 40 U/L (39-308); TROPONIN I < 0.015 ng/ml (<0.045)
[2016-12-30 07:05] LABS: HEMOGLOBIN A1c 5.6 % (4.8-5.6)
[2016-12-30 07:23] LABS: VITAMIN D, 25-HYDROXY 31.3 ng/mL (30-100)
[2016-12-30 07:24] LABS: FOLIC ACID 21.67 ng/mL (>5.38)
[2016-12-30 07:28] LABS: CHLORIDE 106 mmol/L (98-107); POTASSIUM 3.2 mmol/L (3.5-5.1); SODIUM 142 mmol/L (136-145)
[2016-12-30 07:48] LABS: BUN 17 mg/dl (7-24); CARBON DIOXIDE 26 mmol/L (21-32); CHOLESTEROL 107 mg/dL (<200); EST GLOM FILT AFRICAN AMERICAN > 60 ml/min; FREE T4 1.46 ng/dl (0.76-1.46); GLUCOSE 99 mg/dL (65-99); HDL CHOLESTEROL 67 mg/dl (40-60); LDL CHOLESTEROL 30 mg/dL (9-159); MAGNESIUM 2.1 mg/dL (1.5-2.1); PHOSPHOROUS 2.7 mg/dL (2.5-4.9); TRIGLYCERIDES 49 mg/dl (<150); VLDL CHOLESTEROL 10 mg/dL (6-40)
[2016-12-30 08:00] VITALS: BP 148/89
[2016-12-30 08:38] LABS: BILIRUBIN NEGATIVE (NEGATIVE); BLOOD 3+ (NEGATIVE); CLARITY CLOUDY (CLEAR); COLOR RED (YELLOW); GLUCOSE NEGATIVE (NEGATIVE); KETONE NEGATIVE (NEGATIVE); LEUKO ESTERASE NEGATIVE (NEGATIVE); NITRITE NEGATIVE (NEGATIVE); PROTEIN 2+ (NEGATIVE)
[2016-12-30 09:29] LABS: RBC TNTC rbc/hpf (0-2); URINE REFLEX COMMENT YES (NO); WBC 21-30 wbc/hpf (0-5)
[2016-12-30 10:32] LABS: INTERNATIONAL NORM RATIO 1.1 (2.0-3.5); PROTHROMBIN TIME 11.8 SECONDS (9.0-12.4)
[2016-12-30 11:09] LABS: COL/EPI 92 SECONDS (86-157)
[2016-12-30 12:00] VITALS: BP 132/87
[2016-12-30 12:43] LABS: CPK 47 U/L (39-308)
[2016-12-30 12:52] LABS: TROPONIN I < 0.015 ng/ml (<0.045)
[2016-12-30 16:00] VITALS: BP 156/77
[2016-12-30 20:00] VITALS: BP 139/92
[2016-12-31] VITALS: BP 142/81
[2016-12-31 06:53] LABS: BASO % 0.4 % (0.0-1.0); EOS # 0.3 10*3/uL (0.0-0.4); EOS % 3.5 % (1.0-4.0); HEMATOCRIT 42.3 % (42.0-52.0); LYMPH # 1.4 10*3/uL (1.3-4.4); LYMPH % 18.3 % (27.0-41.0); MEAN CELL VOLUME 91.8 fl (80.0-94.0); MEAN CORPUSCULAR HGB 30.4 pg (27.0-31.0); MEAN CORPUSCULAR HGB CONC 33.1 g/dl (33.0-37.0); MEAN PLATELET VOLUME 9.6 fl (9.6-12.3); MONO # 0.6 10*3/uL (0.1-1.0); MONO % 8.3 % (3.0-9.0); NEUT # 5.1 10*3/uL (2.3-7.9); NEUT % 69.2 % (47.0-73.0); PLATELET COUNT AUTOMATED 226 10*3/uL (130-400); RED BLOOD COUNT 4.61 10*6/uL (4.50-5.90); RED CELL DISTRI WIDTH 12.9 % (0-14.5); WHITE BLOOD COUNT 7.4 10*3/uL (4.8-10.8)
[2016-12-31 07:02] LABS: CHLORIDE 108 mmol/L (98-107); POTASSIUM 3.6 mmol/L (3.5-5.1); SODIUM 141 mmol/L (136-145)
[2016-12-31 07:10] LABS: BUN 19 mg/dl (7-24); CARBON DIOXIDE 24 mmol/L (21-32); EST GLOM FILT AFRICAN AMERICAN > 60 ml/min; GLUCOSE 93 mg/dL (65-99)
[2016-12-31 08:00] VITALS: BP 170/90
[2016-12-31 11:01] LABS: BODY FLUID RBC 2000 /uL; BODY FLUID WBC 525 /uL
[2016-12-31 11:04] LABS: BODY FLUID ALBUMIN 2.3 g/dL; BODY FLUID AMYLASE 26 U/L; BODY FLUID CHOLESTEROL 57 mg/dl; BODY FLUID GLUCOSE 91 mg/dl; BODY FLUID LDH 136 IU/L; BODY FLUID TRIGLYCERIDE 11 mg/dl
[2016-12-31 11:59] LABS: BF LYMPHOCYTES 23 %; BF MACROPHAGES 42 %; BF MESOTHELIALS 9 %; BF NEUTROPHILS 9 %
[2016-12-31 12:00] VITALS: BP 96/62
[2016-12-31 12:07] LABS: BODY FLUID TYPE PLEURAL
[2016-12-31 16:00] VITALS: BP 110/70; BP 121/65
[2016-12-31 20:00] VITALS: BP 143/72
[2017-01-01] VITALS: BP 157/61
[2017-01-01 08:00] VITALS: BP 136/78
[2017-01-01 12:00] VITALS: BP 104/57; BP 108/55
[2017-01-01 16:00] VITALS: BP 111/63
[2017-01-01 20:00] VITALS: BP 113/73
[2017-01-02] VITALS: BP 151/72
[2017-01-02 08:00] VITALS: BP 162/94
[2017-01-02 12:00] VITALS: BP 148/76
[2017-01-02 16:00] VITALS: BP 142/88
[2017-01-02 20:00] VITALS: BP 145/76
[2017-01-03] VITALS: BP 144/85
[2017-01-03 06:11] LABS: BASO % 0.5 % (0.0-1.0); EOS # 0.4 10*3/uL (0.0-0.4); EOS % 5.4 % (1.0-4.0); HEMATOCRIT 42.1 % (42.0-52.0); LYMPH # 1.4 10*3/uL (1.3-4.4); LYMPH % 22.1 % (27.0-41.0); MEAN CELL VOLUME 91.5 fl (80.0-94.0); MEAN CORPUSCULAR HGB 30.4 pg (27.0-31.0); MEAN CORPUSCULAR HGB CONC 33.3 g/dl (33.0-37.0); MEAN PLATELET VOLUME 9.7 fl (9.6-12.3); MONO # 0.5 10*3/uL (0.1-1.0); MONO % 7.6 % (3.0-9.0); NEUT # 4.2 10*3/uL (2.3-7.9); NEUT % 64.1 % (47.0-73.0); PLATELET COUNT AUTOMATED 234 10*3/uL (130-400); RED CELL DISTRI WIDTH 12.8 % (0-14.5); WHITE BLOOD COUNT 6.5 10*3/uL (4.8-10.8)
[2017-01-03 06:31] LABS: BUN 17 mg/dl (7-24); CARBON DIOXIDE 27 mmol/L (21-32); CHLORIDE 106 mmol/L (98-107); EST GLOM FILT AFRICAN AMERICAN > 60 ml/min; GLUCOSE 88 mg/dL (65-99); POTASSIUM 3.9 mmol/L (3.5-5.1); SODIUM 140 mmol/L (136-145)
[2017-01-03 08:00] VITALS: BP 154/88
[2017-01-03 12:00] VITALS: BP 120/68
[2017-01-03 16:00] VITALS: BP 132/89
[2017-01-03 20:00] VITALS: BP 170/82
[2017-01-04] VITALS: BP 155/82
[2017-01-04 08:00] VITALS: BP 122/72
[2017-01-04 12:00] VITALS: BP 132/65
[2017-01-04 16:00] VITALS: BP 136/81
[2017-01-04 20:00] VITALS: BP 120/86
[2017-01-05] VITALS: BP 117/69
[2017-01-05 08:00] VITALS: BP 144/86
[2017-01-05 12:00] VITALS: BP 134/80
[2017-01-05 16:00] VITALS: BP 149/75
== END 2017-01-05 16:59 | disposition other institution (70) | DRG 186 ==
LOC: ED 16:11 → EDHOLD 19:57 → 4E 19:57
PROVIDERS: Internal Medicine; Internal Medicine Critical Care Medicine; Student in an Organized Health Care Education/Training Program
PROC: 0W993ZZ Drainage of Right Pleural Cavity, Percutaneous Approach (ICD-10-PCS; principal; 2016-12-31)
DX: J90 Pleural effusion, not elsewhere classified (principal); I50.23 Acute on chronic systolic (congestive) heart failure; N17.9 Acute kidney failure, unspecified; E44.0 Moderate protein-calorie malnutrition; N13.30 Unspecified hydronephrosis; I48.2 Chronic atrial fibrillation; F03.90 Unspecified dementia, unspecified severity, without behavioral disturbance, psychotic disturbance, mood disturbance, and anxiety; I42.9 Cardiomyopathy, unspecified; I08.0 Rheumatic disorders of both mitral and aortic valves; N13.4 Hydroureter; I16.0 Hypertensive urgency; S30.0XXA Contusion of lower back and pelvis, initial encounter; S13.9XXA Sprain of joints and ligaments of unspecified parts of neck, initial encounter; R33.9 Retention of urine, unspecified; E87.6 Hypokalemia; R73.9 Hyperglycemia, unspecified; E03.9 Hypothyroidism, unspecified; J44.9 Chronic obstructive pulmonary disease, unspecified; I11.0 Hypertensive heart disease with heart failure; N40.0 Benign prostatic hyperplasia without lower urinary tract symptoms; E78.5 Hyperlipidemia, unspecified; I25.10 Atherosclerotic heart disease of native coronary artery without angina pectoris; N32.0 Bladder-neck obstruction; W01.0XXA Fall on same level from slipping, tripping and stumbling without subsequent striking against object, initial encounter; K57.90 Diverticulosis of intestine, part unspecified, without perforation or abscess without bleeding; I87.2 Venous insufficiency (chronic) (peripheral); Z88.5 Allergy status to narcotic agent; Z79.899 Other long term (current) drug therapy; Z82.49 Family history of ischemic heart disease and other diseases of the circulatory system; Z84.89 Family history of other specified conditions; Z95.5 Presence of coronary angioplasty implant and graft; Z84.1 Family history of disorders of kidney and ureter; Z82.0 Family history of epilepsy and other diseases of the nervous system; Y93.89 Activity, other specified; Y92.89 Other specified places as the place of occurrence of the external cause; Y99.8 Other external cause status; Z68.27 Body mass index [BMI] 27.0-27.9, adult

== ENCOUNTER 2017-07-22 18:05 | Inpatient (IN) | payer MEDICARE, OTHER ==
[~2017-07-22] VITALS: Ht 170.1 cm; Wt 68.2 kg
--- NOTE | 2017-07-22 10:45 | NUR ---
DR ALMODOVAR NOTIFIED THAT MEDICATIONS WERE IN CHART, REVIEWED WITH . HIS STATED THAT HE WAS ON 6 MEDICATIONS AND SHE GAVE MEDICATION NAMES AND DOSEAGES.
[~2017-07-22 18:05] MED LIST changes: +METOPROLOL SUCC50 M1 PO; +TAMSULOSIN HCL0.4 MG PO
[2017-07-22 18:39] VITALS: BP 141/84
[2017-07-22 19:03] LABS: BASO % 0.7 % (0.0-1.0); EOS # 0.1 10*3/uL (0.0-0.4); HEMATOCRIT 44.5 % (42.0-52.0); HEMOGLOBIN 14.6 g/dl (14.0-18.0); LYMPH # 1.3 10*3/uL (1.3-4.4); LYMPH % 22.5 % (27.0-41.0); MEAN CELL VOLUME 91.4 fl (80.0-94.0); MEAN CORPUSCULAR HGB CONC 32.8 g/dl (33.0-37.0); MEAN PLATELET VOLUME 9.1 fl (9.6-12.3); MONO # 0.4 10*3/uL (0.1-1.0); MONO % 7.2 % (3.0-9.0); NEUT % 67.4 % (47.0-73.0); PLATELET COUNT AUTOMATED 246 10*3/uL (130-400); RED BLOOD COUNT 4.87 10*6/uL (4.50-5.90); RED CELL DISTRI WIDTH 13.3 % (0-14.5); WHITE BLOOD COUNT 5.9 10*3/uL (4.8-10.8)
[2017-07-22 19:20] LABS: ACT PARTIAL THROMBO TIME 28.7 SECONDS (20.8-31.5); ALBUMIN 3.5 gm/dl (3.1-4.5); ALKALINE PHOSPHATASE 101 U/L (45-117); BUN 23 mg/dl (7-24); CHLORIDE 102 mmol/L (98-107); CREATININE 1.19 mg/dL (0.70-1.30); INTERNATIONAL NORM RATIO 1.1 (2.0-3.5); POTASSIUM 3.3 mmol/L (3.5-5.1); SGOT/AST 17 IU/L (3-35); SGPT/ALT 17 U/L (12-78); SODIUM 138 mmol/L (136-145); TOTAL PROTEIN 7.6 gm/dL (6.4-8.2)
[2017-07-22 19:22] VITALS: BP 156/101
[2017-07-22 20:00] LABS: BILIRUBIN NEGATIVE (NEGATIVE); BLOOD TRACE-INTACT (NEGATIVE); CLARITY CLOUDY (CLEAR); COLOR YELLOW (YELLOW); GLUCOSE NEGATIVE (NEGATIVE); KETONE NEGATIVE (NEGATIVE); LEUKO ESTERASE 3+ (NEGATIVE); NITRITE POSITIVE (NEGATIVE); SPECIFIC GRAVITY <= 1.005 (1.005-1.030); UROBILINOGEN 0.2 E.U./dl (0.2-1.0)
[2017-07-22 20:13] LABS: BACTERIA 4+; WBC 51-100 wbc/hpf (0-5)
[2017-07-22 21:21] VITALS: BP 157/98
[2017-07-23] VITALS: BP 157/87
--- NOTE | 2017-07-23 00:08 | NUR ---
Time: 2144 A 86 year old MALE admitted to under services of LAURA WEINER DO Pt. arrived via CART WITH RN from ER. Chief complaint:UTI, ELEVATED BLOOD PRESSURE . RITCHIE CARDOZA
--- NOTE | 2017-07-23 01:09 | NUR ---
24 HR chart check completed.
[2017-07-23 06:15] LABS: BASO % 0.6 % (0.0-1.0); EOS # 0.2 10*3/uL (0.0-0.4); HEMATOCRIT 42.8 % (42.0-52.0); LYMPH # 1.4 10*3/uL (1.3-4.4); LYMPH % 28.7 % (27.0-41.0); MEAN CELL VOLUME 91.5 fl (80.0-94.0); MEAN CORPUSCULAR HGB 29.9 pg (27.0-31.0); MEAN CORPUSCULAR HGB CONC 32.7 g/dl (33.0-37.0); MEAN PLATELET VOLUME 9.3 fl (9.6-12.3); MONO # 0.4 10*3/uL (0.1-1.0); MONO % 8.4 % (3.0-9.0); NEUT % 59.1 % (47.0-73.0); PLATELET COUNT AUTOMATED 232 10*3/uL (130-400); RED BLOOD COUNT 4.68 10*6/uL (4.50-5.90); RED CELL DISTRI WIDTH 13.3 % (0-14.5)
[2017-07-23 06:40] LABS: BUN 20 mg/dl (7-24); CHLORIDE 106 mmol/L (98-107); CREATININE 0.99 mg/dL (0.70-1.30); POTASSIUM 3.4 mmol/L (3.5-5.1); SODIUM 142 mmol/L (136-145)
[2017-07-23 06:47] LABS: VITAMIN D, 25-HYDROXY 24.9 ng/mL (30-100)
[2017-07-23 06:55] LABS: ACT PARTIAL THROMBO TIME 29.6 SECONDS (20.8-31.5); INTERNATIONAL NORM RATIO 1.1 (2.0-3.5)
[2017-07-23 08:00] VITALS: BP 162/80
--- NOTE | 2017-07-23 11:10 | NUR ---
PHYSICAL THERAPY PAtient evaluated on 4, full evaluation to follow. Continue with PT as per plan of care with fall, UTI, mod (A) x 1-2 and acute debility precautions. Recommend SNF for impaired mobility. PAtient is high complexity via chart review, tests and evaluation: [id number]. Thank you for this referral. Paty Sanchez,PT
--- NOTE | 2017-07-23 11:55 | NUR ---
corporate meeting planner in to see patient to discuss discharge planning, patient asked me to please call his to discuss. Called and spoke with Sandra who stated patient lives at home with her. Her daughter and son in law help daily. They have a wheel chair, 2 walkers, 3 canes and have redone the house so patient is on first floor room with bathroom. laronl refuses patient going to snf. Patient is to be discharged to home when stable for discharge. Also refusing visiting nurses, states they are not needed at this time
[2017-07-23 12:00] VITALS: BP 142/84
[2017-07-23 16:00] VITALS: BP 157/95
--- NOTE | 2017-07-23 17:09 | NUR ---
PATIENT C/O FEELING LIKE SOMETHING IS IN HIS RIGHT EYE. HE CONTINUES TO RUB THE EYE CONTINUOUSLY. RIGHT EYE IS REDDENED WITH ORBITAL REDNESS AND SWELLING. PER FAMILY, PATIENT HAS HAD THIS PROBLEM FOR SEVERAL MONTHS, HAS NOT HAD PUS OR DRAINAGE, HAS HAD PAIN TO THE EYE, AND OTC SALINE DROPS HAVE NOT BEEN EFFECTIVE. DR. EGAN NOTIFIED OF THESE SYMPTOMS.
--- NOTE | 2017-07-23 18:46 | NUR ---
ADMINISTERED GENTEAL EYE GEL TO RIGHT EYE FOR IRRITATION/REDNESS
[2017-07-23 20:00] VITALS: BP 144/76
[2017-07-24] VITALS: BP 150/89
[2017-07-24 07:21] LABS: BUN 19 mg/dl (7-24); CHLORIDE 107 mmol/L (98-107); CREATININE 0.94 mg/dL (0.70-1.30); POTASSIUM 3.6 mmol/L (3.5-5.1); SODIUM 139 mmol/L (136-145)
[2017-07-24 08:00] VITALS: BP 154/90
--- NOTE | 2017-07-24 11:46 | NUR ---
DR. ALBRIGHT IN AND SPOKE WITH FAMILY REGARDING PLAN OF CARE.
[2017-07-24 12:00] VITALS: BP 148/90
[2017-07-24 16:00] VITALS: BP 131/85
[2017-07-24 20:00] VITALS: BP 126/83
[2017-07-25] VITALS: BP 149/79
[2017-07-25 08:00] VITALS: BP 148/88
--- NOTE | 2017-07-25 08:00 | NUR ---
SITTING ON SIDE OF BED, FOLLOWS SIMPLE COMMANDS EASILY. CONFUSED TO TIME & PLACE. 2 ASSIST TO BR, GENERAIZED WEAKNESS NOTED. SEE SHIFT ASSESSMENT.
--- NOTE | 2017-07-25 08:00 | NUR ---
RESTING AT SIDE OF BED, EASY RESPIRATIONS WITH SKIN W/D. AMBULATED WITH 2 ASSIST TO BR. SEE SHIFT ASSESSMENT.
--- NOTE | 2017-07-25 08:00 | NUR ---
AMBULATORY IN ROOM, EASY RESPIRATIONS WITH SKIN W/D. PT DENIES C/O AT PRESENT TIME. SEE SHIFT ASSESSMENT.
[2017-07-25] MEDS ORDERED: AMOXICILLIN500 M2 PO (09:35)
[2017-07-25] MEDS ORDERED: VITAMIN D-32000 UNI1 PO (09:35)
--- NOTE | 2017-07-25 11:45 | NUR ---
SPOKE WITH PTS FAMILY REGARDING DISCHARGE, STATE THEY WILL BE HERE LATER TODAY.
--- NOTE | 2017-07-25 13:45 | NUR ---
Discharge instructions reviewed with patient/family. Patient receptive and verbalizes understanding. Written instructions given to patient/family. EDUARD MUNOZ
--- NOTE | 2017-07-26 08:25 | NUR ---
PHYSICAL THERAPY CO-SIGN I approve of the Phyical Therapy notes written above. NELSON MOODY PT
== END 2017-07-25 13:45 | disposition home or self-care (01) | DRG 689 ==
LOC: ED 18:05 → EDHOLD 20:34 → 4E 20:34
PROVIDERS: Emergency Medicine; Internal Medicine; Nurse Practitioner Family; ADMIT Internal Medicine
DX: N39.0 Urinary tract infection, site not specified (principal); G93.41 Metabolic encephalopathy; E44.0 Moderate protein-calorie malnutrition; I48.2 Chronic atrial fibrillation; I13.0 Hypertensive heart and chronic kidney disease with heart failure and stage 1 through stage 4 chronic kidney disease, or unspecified chronic kidney disease; I50.20 Unspecified systolic (congestive) heart failure; E83.51 Hypocalcemia; E03.9 Hypothyroidism, unspecified; E78.5 Hyperlipidemia, unspecified; J44.9 Chronic obstructive pulmonary disease, unspecified; N18.3 Chronic kidney disease, stage 3 (moderate); R31.9 Hematuria, unspecified; E87.6 Hypokalemia; N40.0 Benign prostatic hyperplasia without lower urinary tract symptoms; I25.10 Atherosclerotic heart disease of native coronary artery without angina pectoris; E86.0 Dehydration; Z68.23 Body mass index [BMI] 23.0-23.9, adult; Z88.5 Allergy status to narcotic agent; Z79.899 Other long term (current) drug therapy; Z81.8 Family history of other mental and behavioral disorders; Z82.49 Family history of ischemic heart disease and other diseases of the circulatory system; Z84.1 Family history of disorders of kidney and ureter

== ENCOUNTER 2017-11-29 18:23 | Inpatient (IN) | payer MEDICARE, OTHER ==
[~2017-11-29] VITALS: Ht 182.9 cm; Wt 75.3 kg
--- NOTE | ~2017-11-29 | PROC NOTE ---
[place], [place] PROCEDURE NOTE NAME: MERVIN SARABIA UNIT #: [id number] ROOM: 508 DOCTOR: TIMOTHY RAMIREZ BIRTHDATE: [birth year] DOS: 12/01/2017 MODIFIED BARIUM SWALLOW LOCATION: [facility], room 508, bed 1. ORDERING PHYSICIAN: Dr. Rhodes. RADIOLOGIST: Dr. Gonzalez. BACKGROUND INFORMATION: The patient is an 86-year-old male who was seen for modified barium swallow. This test was ordered to rule out aspiration. The patient is diagnosed with pneumonia and aspiration is suspected. The patient is also diagnosed with metabolic encephalopathy, severe sepsis, COPD, HTN, hiatal hernia, AFib and hypothyroid disease. The patient currently receives a regular diet and thin liquid. For today's assessment, the patient was alert and able to follow commands. Confusion was displayed, however, this is premorbid. Oral peripheral examination revealed edentulous status. The patient presented in a consistent open mouth position. Lingual and labial tremors were noted. The patient exhibited impairments in lingual and labial strength, coordination and range of motion. His volitional swallow was delayed. He was unable to volitionally cough. METHODS AND MATERIALS USED FOR THE EXAM: The patient was positioned in the lateral plane and the exam was viewed under fluoroscopy. The patient was presented with a variety of consistencies to assess swallowing skills including applesauce mixed with barium presented in half teaspoon amounts, barium-coated banana presented in bite size pieces and thin liquid barium taken by cup. The patient took the cup independently and swallowed in his regular sip size amount. ORAL PHASE: The patient achieved adequate labial seal around cup and spoon with no anterior loss. Bolus formation was adequate. Oral transit time was mildly increased with all consistencies. Mastication was slow, but functional due to his dentition and oral functioning. Tongue to palate contact was within normal limits. Tongue to posterior pharyngeal wall contact was functional. Velar functioning was within normal limits. PHARYNGEAL PHASE: The pharyngeal swallow occurred within a timely manner. Again, his swallow was slow in general. High laryngeal elevation was functional. No penetration or aspiration occurred with any consistency. A mild amount of residue was noted with soft solid; however, this cleared with subsequent swallow. ESOPHAGEAL PHASE: This phase of the swallow was not formally assessed during this exam. IMPRESSIONS AND RECOMMENDATIONS: Based upon assessment results, this 86-year-old patient presents with a mild oropharyngeal dysphagia. His swallow was slow, but functional in general. Oral transit and mastication were slow. A [place], [place] PROCEDURE NOTE NAME: MERVIN SARABIA UNIT #: [id number] ROOM: 508 DOCTOR: TIMOTHY RAMIREZ BIRTHDATE: [birth year] mild amount of residue occurred with soft solid; however, he cleared this with a re-swallow. No penetration or aspiration occurred with any consistency. It is recommended that patient receive a soft diet and thin liquid as this is his least restrictive diet. Recommend implementation of safe swallow strategies such as upright positioning for meals, consumption of small bites and sips and eating slowly. Short term followup therapy is recommended, preferably at a meal to ensure safe tolerance of diet. Results and recommendations were shared with the patient and his nurse and they verbalized understanding. Thank you very much for this referral. Should you have any questions regarding this patient, please contact the speech pathologist at [phone]. TIMOTHY RAMIREZ CM:PROCNOTE:PROCEDURE NOTE [id number] TIMOTHY RAMIREZ
--- NOTE | ~2017-11-29 | PR ---
[place], [place] PROGRESS NOTE NAME: MERVIN SARABIA UNIT #: [id number] ROOM: 508 DOCTOR: JUANA MCCALLUM,SCOTTIE Lopez BIRTHDATE: [birth year] DOS: 12/05/2017 ADDENDUM I agree with the above plans after reviewing the chart, labs and microbiology. We will follow the patient up clinically and make adjustments accordingly. SCOTTIE ARIAS MD CM:PNTRANS [id number] SCOTTIE ARIAS MD 12/06/17 0745 interface
[~2017-11-29 18:23] MED LIST changes: +AMOXICILLIN500 M2 PO; +VITAMIN D-32000 UNI1 PO
[2017-11-29 18:24] VITALS: BP 182/132
[2017-11-29 18:38] VITALS: BP 176/110
[2017-11-29 19:00] LABS: HEMATOCRIT 48.6 % (42.0-52.0); HEMOGLOBIN 16.1 g/dl (14.0-18.0); MEAN CELL VOLUME 93.3 fl (80.0-94.0); MEAN CORPUSCULAR HGB 30.9 pg (27.0-31.0); MEAN CORPUSCULAR HGB CONC 33.1 g/dl (33.0-37.0); MEAN PLATELET VOLUME 9.5 fl (9.6-12.3); PLATELET COUNT AUTOMATED 220 10*3/uL (130-400); RED BLOOD COUNT 5.21 10*6/uL (4.50-5.90)
[2017-11-29 19:10] LABS: ACT PARTIAL THROMBO TIME 24.8 SECONDS (20.8-31.5)
[2017-11-29 19:17] LABS: ALBUMIN 4.1 gm/dl (3.1-4.5); ALKALINE PHOSPHATASE 94 U/L (45-117); BUN 23 mg/dl (7-24); CHLORIDE 98 mmol/L (98-107); CREATININE 1.28 mg/dL (0.70-1.30); POTASSIUM 3.7 mmol/L (3.5-5.1); SGOT/AST 20 IU/L (3-35); SGPT/ALT 18 U/L (12-78); SODIUM 136 mmol/L (136-145); TOTAL CELLS COUNTED 100 #CELLS
[2017-11-29 19:18] LABS: PLATELET SUFFICIENCY NORMAL (NORMAL)
[2017-11-29 19:20] LABS: TROPONIN I < 0.015 ng/ml (<0.045)
[2017-11-29 19:45] VITALS: BP 128/100
[2017-11-29 19:51] VITALS: BP 121/86
[2017-11-29] MEDS ORDERED: VITAMIN B121000 MC1 PO (19:54)
[2017-11-29 20:45] LABS: BILIRUBIN NEGATIVE (NEGATIVE); BLOOD 2+ (NEGATIVE); CLARITY CLEAR (CLEAR); COLOR YELLOW (YELLOW); GLUCOSE NEGATIVE (NEGATIVE); KETONE NEGATIVE (NEGATIVE); LEUKO ESTERASE NEGATIVE (NEGATIVE); NITRITE NEGATIVE (NEGATIVE); UROBILINOGEN 0.2 E.U./dl (0.2-1.0)
[2017-11-29 21:03] LABS: BACTERIA TRACE
[2017-11-29 21:04] LABS: EPITHELIAL CELLS 0-2; RBC 16-20 rbc/hpf (0-2); WBC 0-2 wbc/hpf (0-5)
[2017-11-29 22:36] LABS: ABG BASE EXCESS 0.7 mmol/L (-2.0-2.0); ABG HCO3 23.7 mmol/l (22-26); ABG O2 SATURATION 97.1 % (95-97); ARTERIAL BLOOD GAS PCO2 34.6 mmHg (35-45); ARTERIAL BLOOD GAS PH 7.45 (7.35-7.45); ARTERIAL BLOOD GAS PO2 88.6 mmHg (80-90)
[2017-11-29 22:48] VITALS: BP 147/86
[2017-11-30] VITALS (7 sets, daily range): BP systolic 105–157; BP diastolic 59–86
[2017-11-30 05:16] LABS: BUN 23 mg/dl (7-24); CHOLESTEROL 107 mg/dL (<200); CREATININE 1.36 mg/dL (0.70-1.30); HDL CHOLESTEROL 72 mg/dl (40-60); LDL CHOLESTEROL 27 mg/dL (9-159); PHOSPHOROUS 3.3 mg/dL (2.5-4.9); TRIGLYCERIDES 41 mg/dl (<150); VLDL CHOLESTEROL 8 mg/dL (6-40)
[2017-11-30 05:34] LABS: CHLORIDE 101 mmol/L (98-107); SODIUM 137 mmol/L (136-145)
[2017-11-30 05:53] LABS: HEMOGLOBIN 14.1 g/dl (14.0-18.0); MEAN CELL VOLUME 92.9 fl (80.0-94.0); MEAN CORPUSCULAR HGB 30.5 pg (27.0-31.0); MEAN CORPUSCULAR HGB CONC 32.8 g/dl (33.0-37.0); MEAN PLATELET VOLUME 10.1 fl (9.6-12.3); PLATELET COUNT AUTOMATED 194 10*3/uL (130-400); RED BLOOD COUNT 4.63 10*6/uL (4.50-5.90); RED CELL DISTRI WIDTH 13.1 % (0-14.5); WHITE BLOOD COUNT 22.9 10*3/uL (4.8-10.8)
[2017-11-30 06:35] LABS: PLATELET SUFFICIENCY NORMAL (NORMAL); TOTAL CELLS COUNTED 100 #CELLS
[2017-11-30 06:43] LABS: VITAMIN D, 25-HYDROXY 16.8 ng/mL (30-100)
[2017-12-01] VITALS: BP 118/76
[2017-12-01 06:35] LABS: HEMATOCRIT 41.5 % (42.0-52.0); HEMOGLOBIN 13.4 g/dl (14.0-18.0); MEAN CELL VOLUME 93.3 fl (80.0-94.0); MEAN CORPUSCULAR HGB 30.1 pg (27.0-31.0); MEAN CORPUSCULAR HGB CONC 32.3 g/dl (33.0-37.0); MEAN PLATELET VOLUME 10.1 fl (9.6-12.3); PLATELET COUNT AUTOMATED 185 10*3/uL (130-400); RED BLOOD COUNT 4.45 10*6/uL (4.50-5.90); RED CELL DISTRI WIDTH 13.2 % (0-14.5); WHITE BLOOD COUNT 21.4 10*3/uL (4.8-10.8)
[2017-12-01 07:05] LABS: ALBUMIN 2.5 gm/dl (3.1-4.5); CREATININE 1.46 mg/dL (0.70-1.30); POTASSIUM 3.2 mmol/L (3.5-5.1)
[2017-12-01 07:15] LABS: BURR CELLS FEW; PLATELET SUFFICIENCY NORMAL (NORMAL); TOTAL CELLS COUNTED 100 #CELLS
[2017-12-01 08:00] VITALS: BP 133/83
[2017-12-01 12:00] VITALS: BP 110/65
[2017-12-01 16:00] VITALS: BP 137/80
[2017-12-01 20:00] VITALS: BP 150/69
[2017-12-02] VITALS: BP 137/80
[2017-12-02 06:33] LABS: HEMATOCRIT 45.2 % (42.0-52.0); HEMOGLOBIN 14.9 g/dl (14.0-18.0); MEAN CELL VOLUME 92.6 fl (80.0-94.0); MEAN CORPUSCULAR HGB 30.5 pg (27.0-31.0); MEAN PLATELET VOLUME 10.3 fl (9.6-12.3); PLATELET COUNT AUTOMATED 195 10*3/uL (130-400); RED BLOOD COUNT 4.88 10*6/uL (4.50-5.90); RED CELL DISTRI WIDTH 13.2 % (0-14.5); WHITE BLOOD COUNT 15.8 10*3/uL (4.8-10.8)
[2017-12-02 07:02] LABS: BURR CELLS MANY; PLATELET SUFFICIENCY NORMAL (NORMAL); TOTAL CELLS COUNTED 100 #CELLS
[2017-12-02 07:03] LABS: ALBUMIN 2.4 gm/dl (3.1-4.5); ALKALINE PHOSPHATASE 53 U/L (45-117); BUN 38 mg/dl (7-24); CHLORIDE 106 mmol/L (98-107); POTASSIUM 3.1 mmol/L (3.5-5.1); SGOT/AST 53 IU/L (3-35); SGPT/ALT 43 U/L (12-78); SODIUM 139 mmol/L (136-145)
[2017-12-02 08:00] VITALS: BP 154/89
[2017-12-02 12:00] VITALS: BP 154/88
[2017-12-02 16:00] VITALS: BP 155/85
[2017-12-02 20:00] VITALS: BP 162/93
[2017-12-03] VITALS: BP 150/87
[2017-12-03 06:21] LABS: HEMATOCRIT 44.7 % (42.0-52.0); MEAN CORPUSCULAR HGB 30.5 pg (27.0-31.0); MEAN CORPUSCULAR HGB CONC 33.6 g/dl (33.0-37.0); MEAN PLATELET VOLUME 10.3 fl (9.6-12.3); PLATELET COUNT AUTOMATED 215 10*3/uL (130-400); RED BLOOD COUNT 4.91 10*6/uL (4.50-5.90); RED CELL DISTRI WIDTH 13.2 % (0-14.5); WHITE BLOOD COUNT 10.6 10*3/uL (4.8-10.8)
[2017-12-03 06:43] LABS: BURR CELLS MODERATE; TOTAL CELLS COUNTED 100 #CELLS
[2017-12-03 06:44] LABS: PLATELET SUFFICIENCY NORMAL (NORMAL)
[2017-12-03 07:01] LABS: ALBUMIN 2.4 gm/dl (3.1-4.5); BUN 36 mg/dl (7-24); CHLORIDE 109 mmol/L (98-107); POTASSIUM 3.7 mmol/L (3.5-5.1); SODIUM 142 mmol/L (136-145)
[2017-12-03 07:04] LABS: ALKALINE PHOSPHATASE 59 U/L (45-117); CREATININE 1.26 mg/dL (0.70-1.30); SGOT/AST 63 IU/L (3-35); SGPT/ALT 70 U/L (12-78); TOTAL PROTEIN 5.9 gm/dL (6.4-8.2)
[2017-12-03 08:40] VITALS: BP 142/84
[2017-12-03 12:10] VITALS: BP 166/80
[2017-12-03] MEDS ORDERED: AUGMENTIN 875875 MG PO (15:58)
[2017-12-03 16:17] VITALS: BP 156/88
== END 2017-12-03 19:40 | disposition home or self-care (01) | DRG 871 ==
LOC: ED 18:23 → 5E 21:39 → EDHOLD 21:39 → 5E 22:21
PROVIDERS: Emergency Medicine; Family Medicine; Internal Medicine; Internal Medicine Nephrology; Student in an Organized Health Care Education/Training Program
PROC: BD11YZZ Fluoroscopy of Esophagus using Other Contrast (ICD-10-PCS; principal; 2017-12-01)
DX: A41.9 Sepsis, unspecified organism (principal); G93.41 Metabolic encephalopathy; L89.151 Pressure ulcer of sacral region, stage 1; I13.0 Hypertensive heart and chronic kidney disease with heart failure and stage 1 through stage 4 chronic kidney disease, or unspecified chronic kidney disease; I50.20 Unspecified systolic (congestive) heart failure; I48.2 Chronic atrial fibrillation; I45.81 Long QT syndrome; J18.1 Lobar pneumonia, unspecified organism; J44.0 Chronic obstructive pulmonary disease with (acute) lower respiratory infection; J44.1 Chronic obstructive pulmonary disease with (acute) exacerbation; I16.1 Hypertensive emergency; F03.90 Unspecified dementia, unspecified severity, without behavioral disturbance, psychotic disturbance, mood disturbance, and anxiety; N18.3 Chronic kidney disease, stage 3 (moderate); R65.20 Severe sepsis without septic shock; I25.10 Atherosclerotic heart disease of native coronary artery without angina pectoris; N40.0 Benign prostatic hyperplasia without lower urinary tract symptoms; E78.5 Hyperlipidemia, unspecified; Z88.5 Allergy status to narcotic agent; Z84.1 Family history of disorders of kidney and ureter; Z82.0 Family history of epilepsy and other diseases of the nervous system; Z84.89 Family history of other specified conditions; Z82.49 Family history of ischemic heart disease and other diseases of the circulatory system; E03.9 Hypothyroidism, unspecified; K57.90 Diverticulosis of intestine, part unspecified, without perforation or abscess without bleeding; K52.9 Noninfective gastroenteritis and colitis, unspecified; I87.8 Other specified disorders of veins

== ENCOUNTER 2017-12-03 20:35 | Inpatient (IN) | payer MEDICARE, OTHER ==
[~2017-12-03] VITALS: Ht 167.6 cm; Wt 76.7 kg
--- NOTE | ~2017-12-03 | PR ---
[place], [place] PROGRESS NOTE [id number] UN[facility] #: [id number] ROOM: 508 DOCTOR: ELMA DIAMOND,JANUARY BIRTHDATE: [birth year] DOS: SUBJECTIVE: The patient is an 86-year-old male who has been followed by infectious disease for group G strep bacteremia of unknown etiology along with a right lower lobe infiltrate thought to be probably aspiration pneumonia. The patient is alert, has baseline dementia, very confused. He was discharged yesterday. His attempted to take him home, had significant difficulties, he could not walk. He screamed when he got home. They had to bring him back to the hospital. He remains on his Augmentin. He has had no chills. White count is normal. No new issues from an infectious diseases standpoint. The patient is alert, very, very confused and unable to give any history or review of systems. LABORATORY DATA: WBC 9.9, platelets 224, BUN 38, creatinine 1.18. AST 62, ALT 98, blood and urine cultures pending. CURRENT MEDICATIONS: Flomax, Synthroid, heparin, Lasix, Proscar, vitamin B12, Plavix, vitamin D, Augmentin, Norvasc, Lopressor, Apresoline, Restoril, milk of mag, Dulcolax. PHYSICAL EXAMINATION: VITAL SIGNS: Temperature 97.5, pulse 81, respirations 20, BP 150/77. GENERAL: An 86-year-old male, very confused. Speech is difficult to understand. HEAD, EYES, EARS, NOSE AND THROAT: Normocephalic, no thrush. Edentulous. LUNGS: Clear to auscultation bilaterally. Respirations even and unlabored. HEART: Regular rhythm. No murmur appreciated. ABDOMEN: Soft, nondistended, nontender. EXTREMITIES: Trace edema bilateral lower extremities. He has some open superficial wounds across the left anterior lower leg after removal of his Unna boots per podiatry. SKIN: Otherwise, warm, dry, free of rashes. RADIOLOGY: Chest x-ray reviewed. Small bilateral pleural effusions. ASSESSMENT: Group G strep of unknown etiology as well as right lower lobe infiltrate, which is resolving, likely due to aspiration. PLAN: Continue the Augmentin, which he is to receive for another 4 days. Case discussed with Dr. Scottie Arias. ADDENDUM After reviewing the chart and labs, I agree with the above plans as described. We will follow the patient up clinically and adjust accordingly. CHINO DARA WILLS [place], [place] PROGRESS NOTE NAME: MERVIN SARABIA UNIT #: [id number] ROOM: 508 DOCTOR: ELMA DIAMONDJANUARY BIRTHDATE: [birth year] SCOTTIE ARIAS MD CM:PNTRANS [id number] JANUARY ELMA DIAMOND 12/05/17 0306 interface
--- NOTE | ~2017-12-03 | EKG ---
[place], [place] ELECTROCARDIOGRAM REPORT NAME: MERVIN SARABIA UNIT #: [id number] ROOM: 508 DOCTOR: LUDWIG TEMPLETON MD BIRTHDATE: [birth year] DOS: 12/03/2017 TIME: 2136 hours. FINDINGS: 1. Atrial fibrillation with a ventricular rate of 76 beats per minute. 2. No evidence of ischemia or infarction. LUDWIG TEMPLETON MD CM:EKGRPT:ELECTROCARDIOGRAM REPORT [id number] 1906 LUDWIG TEMPLETON MD
--- NOTE | ~2017-12-03 | CON ---
[place], [place] REPORT OF CONSULTATION NAME: MERVIN SARABIA UNIT #: [id number] ROOM: 508 DOCTOR: BRIAN MARTIN DPM BIRTHDATE: [birth year] DOS: 12/04/2017 HISTORY OF PRESENT ILLNESS: An 86-year-old white male is seen today for evaluation of bilateral lower extremities. We saw him on his last admission 3 days ago and applied Unna boots. The patient was readmitted to the Emergency Room, took the Unna boots off. We were consulted for reevaluation of the areas. PAST MEDICAL HISTORY: Positive for BPH, coronary artery disease, chronic AFib, chronic kidney disease, COPD, dysphagia, frequent falls, hydronephrosis, hypertension, hypothyroidism, normocytic anemia, vitamin D deficiency, CHF. ALLERGIES: CODEINE. CURRENT MEDICATIONS: Include Flomax, Synthroid, heparin, Lasix, Proscar, vitamin B12, Plavix, vitamin D, Norvasc, Restoril, Zofran. PHYSICAL EXAMINATION: Upon lower extremity physical examination, pedal pulses are mildly decreased. Skin temperature is warm. CFT is less than 2 seconds to all digits. There is minimal edema noted to both lower extremities. Unna boot is removed. There are really no open areas noted bilaterally. No erythema. No signs of infection. Negative Homans sign noted bilaterally. His legs look good at this point with no infectious process and only minimal edema. ASSESSMENT: Chronic venous insufficiency, history of venous leg ulcers. PLAN: Consult is performed. I would not recommend reapplying Unna boots. There is minimal edema and no open wounds. He is elevating his limbs, so no further compression therapy is needed at this time. Follow up with the patient at a later date if needed. Thank you for the opportunity to take part in care of this patient. BRIAN BRYSON MARTIN CM:CONSTR:REPORT OF CONSULTATION 1008 12/04/17 1225 interface
--- NOTE | ~2017-12-03 | PR ---
[place], [place] PROGRESS NOTE NAME: MERVIN SARABIA UNIT #: [id number] ROOM: 508 DOCTOR: ELMA DIAMONDJANUARY BIRTHDATE: [birth year] DOS: 12/05/2017 SUBJECTIVE: The patient is an 86-year-old male who is being followed for possible aspiration pneumonia. He also had a group G strep bacteremia. He is currently on Augmentin. He is alert, confused. Speech is somewhat garbled, very difficult to understand. He has had no fevers, no emesis or diarrhea per nursing. He has no rashes. LABORATORY DATA: Show BUN 33, creatinine 1.1, sodium 143, AST 47, ALT is 76. PHYSICAL EXAMINATION: VITAL SIGNS: Temperature 98.1, pulse 58, respirations 20, BP 152/87. GENERAL: An 86-year-old male, in no acute distress. HEAD, EYES, EARS, NOSE AND THROAT: Normocephalic. No thrush. LUNGS: Diminished right base. Respirations even and unlabored. HEART: Regular rhythm. No murmur appreciated. ABDOMEN: Soft, nontender, nondistended. EXTREMITIES: No edema. Left anterior allan with superficial wounds. No odor or cellulitis. SKIN: Otherwise warm, dry, free of rashes. ASSESSMENT: Right lower lobe infiltrate with probable aspiration as well as group G strep bacteremia. PLAN: He is to continue his Augmentin for a few more days. Case discussed with Dr. Scottie Arias. CHINO DARA WILLS SCOTTIE ARIAS MD CM:PNHERB [id number] JANUARY ELMA DIAMOND 12/06/17 0748 interface
[~2017-12-03 20:35] MED LIST changes: +AUGMENTIN 875875 MG PO; +VITAMIN B121000 MC1 PO
[2017-12-03 20:47] VITALS: BP 169/96
[2017-12-03 21:35] LABS: BASO % 0.1 % (0.0-1.0); HEMATOCRIT 47.9 % (42.0-52.0); HEMOGLOBIN 15.9 g/dl (14.0-18.0); LYMPH # 0.7 10*3/uL (1.3-4.4); LYMPH % 6.7 % (27.0-41.0); MEAN CELL VOLUME 91.4 fl (80.0-94.0); MEAN CORPUSCULAR HGB 30.3 pg (27.0-31.0); MEAN CORPUSCULAR HGB CONC 33.2 g/dl (33.0-37.0); MEAN PLATELET VOLUME 9.8 fl (9.6-12.3); MONO # 0.4 10*3/uL (0.1-1.0); MONO % 3.8 % (3.0-9.0); NEUT # 9.4 10*3/uL (2.3-7.9); NEUT % 88.4 % (47.0-73.0); PLATELET COUNT AUTOMATED 227 10*3/uL (130-400); RED BLOOD COUNT 5.24 10*6/uL (4.50-5.90); RED CELL DISTRI WIDTH 13.2 % (0-14.5); WHITE BLOOD COUNT 10.7 10*3/uL (4.8-10.8)
[2017-12-03 21:52] LABS: ALBUMIN 2.6 gm/dl (3.1-4.5); ALKALINE PHOSPHATASE 68 U/L (45-117); BUN 44 mg/dl (7-24); CHLORIDE 107 mmol/L (98-107); CREATININE 1.35 mg/dL (0.70-1.30); LIPASE 103 U/L (73-393); SGOT/AST 93 IU/L (3-35); SGPT/ALT 116 U/L (12-78); SODIUM 140 mmol/L (136-145); TOTAL PROTEIN 6.2 gm/dL (6.4-8.2)
[2017-12-03 21:53] LABS: TROPONIN I 0.018 ng/ml (<0.045)
[2017-12-03 22:12] VITALS: BP 166/105
[2017-12-03 22:40] VITALS: BP 179/91
[2017-12-03 23:18] LABS: BILIRUBIN NEGATIVE (NEGATIVE); BLOOD 2+ (NEGATIVE); CLARITY SL CLOUDY (CLEAR); COLOR YELLOW (YELLOW); GLUCOSE NEGATIVE (NEGATIVE); KETONE TRACE (NEGATIVE); LEUKO ESTERASE NEGATIVE (NEGATIVE); NITRITE NEGATIVE (NEGATIVE); SPECIFIC GRAVITY 1.015 (1.005-1.030); UROBILINOGEN 0.2 E.U./dl (0.2-1.0)
[2017-12-03 23:27] LABS: BACTERIA 1+; EPITHELIAL CELLS 0-2; RBC 31-40 rbc/hpf (0-2)
[2017-12-04] VITALS (7 sets, daily range): BP systolic 126–180; BP diastolic 77–112
[2017-12-04 06:10] LABS: ALBUMIN 2.5 gm/dl (3.1-4.5); ALKALINE PHOSPHATASE 64 U/L (45-117); BUN 38 mg/dl (7-24); CHLORIDE 108 mmol/L (98-107); CREATININE 1.18 mg/dL (0.70-1.30); POTASSIUM 3.5 mmol/L (3.5-5.1); SGOT/AST 62 IU/L (3-35); SGPT/ALT 98 U/L (12-78); SODIUM 141 mmol/L (136-145); TOTAL PROTEIN 5.8 gm/dL (6.4-8.2)
[2017-12-04 06:11] LABS: BASO % 0.1 % (0.0-1.0); HEMATOCRIT 44.9 % (42.0-52.0); HEMOGLOBIN 15.1 g/dl (14.0-18.0); LYMPH # 1.2 10*3/uL (1.3-4.4); LYMPH % 12.5 % (27.0-41.0); MEAN CELL VOLUME 90.9 fl (80.0-94.0); MEAN CORPUSCULAR HGB 30.6 pg (27.0-31.0); MEAN CORPUSCULAR HGB CONC 33.6 g/dl (33.0-37.0); MEAN PLATELET VOLUME 9.7 fl (9.6-12.3); MONO # 0.6 10*3/uL (0.1-1.0); MONO % 6.1 % (3.0-9.0); NEUT # 7.9 10*3/uL (2.3-7.9); NEUT % 80.4 % (47.0-73.0); PLATELET COUNT AUTOMATED 224 10*3/uL (130-400); RED BLOOD COUNT 4.94 10*6/uL (4.50-5.90); RED CELL DISTRI WIDTH 13.3 % (0-14.5); WHITE BLOOD COUNT 9.9 10*3/uL (4.8-10.8)
[2017-12-05 04:00] VITALS: BP 149/90
[2017-12-05 06:30] LABS: ALBUMIN 2.2 gm/dl (3.1-4.5); ALKALINE PHOSPHATASE 58 U/L (45-117); BUN 33 mg/dl (7-24); CHLORIDE 107 mmol/L (98-107); SGOT/AST 47 IU/L (3-35); SGPT/ALT 76 U/L (12-78); SODIUM 143 mmol/L (136-145); TOTAL PROTEIN 5.2 gm/dL (6.4-8.2)
[2017-12-05 09:00] VITALS: BP 138/69
[2017-12-05 12:00] VITALS: BP 152/87
[2017-12-05 16:00] VITALS: BP 137/79
[2017-12-05 20:03] VITALS: BP 149/88
[2017-12-06 00:11] VITALS: BP 147/82
[2017-12-06 08:00] VITALS: BP 144/88
[2017-12-06 12:00] VITALS: BP 136/87
[2017-12-06 16:00] VITALS: BP 120/70
[2017-12-06 20:00] VITALS: BP 155/80
[2017-12-07] VITALS: BP 147/81
[2017-12-07 07:21] LABS: BASO % 0.1 % (0.0-1.0); EOS # 0.4 10*3/uL (0.0-0.4); EOS % 3.7 % (1.0-4.0); HEMATOCRIT 43.7 % (42.0-52.0); HEMOGLOBIN 14.8 g/dl (14.0-18.0); LYMPH # 1.6 10*3/uL (1.3-4.4); LYMPH % 14.3 % (27.0-41.0); MEAN CELL VOLUME 91.2 fl (80.0-94.0); MEAN CORPUSCULAR HGB 30.9 pg (27.0-31.0); MEAN CORPUSCULAR HGB CONC 33.9 g/dl (33.0-37.0); MEAN PLATELET VOLUME 9.7 fl (9.6-12.3); MONO # 0.6 10*3/uL (0.1-1.0); MONO % 5.4 % (3.0-9.0); NEUT # 8.1 10*3/uL (2.3-7.9); NEUT % 74.3 % (47.0-73.0); PLATELET COUNT AUTOMATED 237 10*3/uL (130-400); RED BLOOD COUNT 4.79 10*6/uL (4.50-5.90); RED CELL DISTRI WIDTH 13.3 % (0-14.5); WHITE BLOOD COUNT 10.9 10*3/uL (4.8-10.8)
[2017-12-07 07:33] LABS: BUN 21 mg/dl (7-24); CHLORIDE 104 mmol/L (98-107); CREATININE 1.05 mg/dL (0.70-1.30); POTASSIUM 3.4 mmol/L (3.5-5.1); SODIUM 140 mmol/L (136-145)
[2017-12-07 08:00] VITALS: BP 142/82
[2017-12-07] MEDS ORDERED: AUGMENTIN 875875 MG PO (11:38)
[2017-12-07 12:00] VITALS: BP 144/80
== END 2017-12-07 16:03 | disposition other institution (70) | DRG 682 ==
LOC: ED 20:35 → EDHOLD 21:18 → 5E 21:18
PROVIDERS: Hospitalist; Internal Medicine; Physician Assistant; Student in an Organized Health Care Education/Training Program
DX: N17.0 Acute kidney failure with tubular necrosis (principal); G93.41 Metabolic encephalopathy; E43 Unspecified severe protein-calorie malnutrition; J44.9 Chronic obstructive pulmonary disease, unspecified; I48.2 Chronic atrial fibrillation; I50.22 Chronic systolic (congestive) heart failure; I13.0 Hypertensive heart and chronic kidney disease with heart failure and stage 1 through stage 4 chronic kidney disease, or unspecified chronic kidney disease; R26.2 Difficulty in walking, not elsewhere classified; I25.10 Atherosclerotic heart disease of native coronary artery without angina pectoris; N18.3 Chronic kidney disease, stage 3 (moderate); E66.9 Obesity, unspecified; R74.0 Nonspecific elevation of levels of transaminase and lactic acid dehydrogenase [LDH]; D72.810 Lymphocytopenia; E83.41 Hypermagnesemia; E03.9 Hypothyroidism, unspecified; N40.0 Benign prostatic hyperplasia without lower urinary tract symptoms; E83.39 Other disorders of phosphorus metabolism; I87.2 Venous insufficiency (chronic) (peripheral); Z88.6 Allergy status to analgesic agent; Z82.49 Family history of ischemic heart disease and other diseases of the circulatory system; Z84.1 Family history of disorders of kidney and ureter; Z81.8 Family history of other mental and behavioral disorders; Z79.899 Other long term (current) drug therapy; Z68.30 Body mass index [BMI] 30.0-30.9, adult

== ENCOUNTER 2018-01-01 17:31 | Emergency (ER) | payer MEDICARE, OTHER ==
[~2018-01-01] VITALS: Wt 54.4 kg
[2018-01-01 17:33] VITALS: BP 104/60
[2018-01-01 17:51] LABS: HEMATOCRIT 41.2 % (42.0-52.0); HEMOGLOBIN 13.4 g/dl (14.0-18.0); MEAN CELL VOLUME 93.8 fl (80.0-94.0); MEAN CORPUSCULAR HGB 30.5 pg (27.0-31.0); MEAN CORPUSCULAR HGB CONC 32.5 g/dl (33.0-37.0); MEAN PLATELET VOLUME 8.9 fl (9.6-12.3); PLATELET COUNT AUTOMATED 235 10*3/uL (130-400); RED BLOOD COUNT 4.39 10*6/uL (4.50-5.90); RED CELL DISTRI WIDTH 13.9 % (0-14.5); WHITE BLOOD COUNT 10.8 10*3/uL (4.8-10.8)
[2018-01-01 18:07] LABS: ALKALINE PHOSPHATASE 82 U/L (45-117); BUN 22 mg/dl (7-24); CHLORIDE 104 mmol/L (98-107); CREATININE 1.11 mg/dL (0.70-1.30); POTASSIUM 3.2 mmol/L (3.5-5.1); SGOT/AST 12 IU/L (3-35); SGPT/ALT 12 U/L (12-78); SODIUM 138 mmol/L (136-145); TOTAL PROTEIN 6.5 gm/dL (6.4-8.2)
[2018-01-01 18:11] LABS: BURR CELLS FEW; PLATELET SUFFICIENCY NORMAL (NORMAL); TOTAL CELLS COUNTED 100 #CELLS
== END 2018-01-01 18:51 | disposition home or self-care (01) ==
LOC: ED 17:31
PROVIDERS: Nurse Practitioner Family
DX: I13.0 Hypertensive heart and chronic kidney disease with heart failure and stage 1 through stage 4 chronic kidney disease, or unspecified chronic kidney disease (principal); N18.3 Chronic kidney disease, stage 3 (moderate); I50.20 Unspecified systolic (congestive) heart failure; E03.9 Hypothyroidism, unspecified; J44.9 Chronic obstructive pulmonary disease, unspecified; I48.2 Chronic atrial fibrillation; E66.9 Obesity, unspecified; Z88.6 Allergy status to analgesic agent; I25.10 Atherosclerotic heart disease of native coronary artery without angina pectoris; Z79.899 Other long term (current) drug therapy

== ENCOUNTER 2018-02-22 14:55 | Inpatient (IN) | payer MEDICARE, OTHER ==
[~2018-02-22] VITALS: Ht 180.3 cm; Wt 86.2 kg
[2018-02-22 14:58] VITALS: BP 128/95
[2018-02-22 15:38] LABS: BASO % 0.3 % (0.0-1.0); EOS % 0.1 % (1.0-4.0); HEMATOCRIT 41.4 % (42.0-52.0); HEMOGLOBIN 13.4 g/dl (14.0-18.0); LYMPH # 2.8 10*3/uL (1.3-4.4); LYMPH % 22.6 % (27.0-41.0); MEAN CELL VOLUME 92.8 fl (80.0-94.0); MEAN CORPUSCULAR HGB CONC 32.4 g/dl (33.0-37.0); MEAN PLATELET VOLUME 9.3 fl (9.6-12.3); MONO # 1.2 10*3/uL (0.1-1.0); MONO % 9.5 % (3.0-9.0); NEUT # 8.2 10*3/uL (2.3-7.9); NEUT % 67.3 % (47.0-73.0); PLATELET COUNT AUTOMATED 262 10*3/uL (130-400); RED BLOOD COUNT 4.46 10*6/uL (4.50-5.90); RED CELL DISTRI WIDTH 13.7 % (0-14.5); WHITE BLOOD COUNT 12.2 10*3/uL (4.8-10.8)
[2018-02-22] MEDS ORDERED: ZOCOR40 MG PO (15:56)
[2018-02-22] MEDS ORDERED: PROSCAR5 M1 PO (15:56)
[2018-02-22 15:57] LABS: ALBUMIN 2.7 gm/dl (3.1-4.5); CREATININE 1.65 mg/dL (0.70-1.30); POTASSIUM 3.8 mmol/L (3.5-5.1); TOTAL PROTEIN 6.9 gm/dL (6.4-8.2)
[2018-02-22] MEDS ORDERED: FLOMAX0.4 MG PO (15:57)
[2018-02-22] MEDS ORDERED: AQUAPHOR396 GM T (15:57)
[2018-02-22] MEDS ORDERED: TYLENOL325 M1 PO (15:58)
[2018-02-22] MEDS ORDERED: LOSARTAN POTAS100 M1 PO (15:58)
[2018-02-22] MEDS ORDERED: NORVASC5 MG PO (15:59)
[2018-02-22] MEDS ORDERED: XARE20MG PO (15:59)
[2018-02-22 16:00] VITALS: BP 128/86
[2018-02-22 16:10] LABS: BILIRUBIN NEGATIVE (NEGATIVE); BLOOD 3+ (NEGATIVE); CLARITY TURBID (CLEAR); COLOR YELLOW (YELLOW); GLUCOSE NEGATIVE (NEGATIVE); KETONE NEGATIVE (NEGATIVE); LEUKO ESTERASE 3+ (NEGATIVE); NITRITE POSITIVE (NEGATIVE); SPECIFIC GRAVITY 1.015 (1.005-1.030)
[2018-02-22 16:21] LABS: BACTERIA 2+; WBC TNTC wbc/hpf (0-5)
[2018-02-22 16:40] LABS: URINE AMPHETAMINES < 1000 (1000ng/ml); URINE BARBITURATES < 200 (200ng/ml); URINE BENZODIAZEPINES < 200 (200ng/ml); URINE CANNABINOIDS (THC) < 50 (50ng/ml); URINE COCAINE < 300 (300ng/ml); URINE METHADONE < 300 (300ng/ml); URINE OPIATES < 300 (300ng/ml)
[2018-02-22 16:42] LABS: URINE PHENCYCLIDINE < 25 (25ng/ml)
[2018-02-22 17:00] VITALS: BP 132/92
[2018-02-22 18:02] VITALS: BP 145/98
[2018-02-22 20:49] VITALS: BP 129/75
[2018-02-23] VITALS: BP 130/76
[2018-02-23 06:31] LABS: BASO % 0.3 % (0.0-1.0); EOS % 0.4 % (1.0-4.0); HEMATOCRIT 37.3 % (42.0-52.0); HEMOGLOBIN 12.1 g/dl (14.0-18.0); LYMPH # 2.2 10*3/uL (1.3-4.4); LYMPH % 21.7 % (27.0-41.0); MEAN CELL VOLUME 92.1 fl (80.0-94.0); MEAN CORPUSCULAR HGB 29.9 pg (27.0-31.0); MEAN CORPUSCULAR HGB CONC 32.4 g/dl (33.0-37.0); MEAN PLATELET VOLUME 9.2 fl (9.6-12.3); MONO % 9.7 % (3.0-9.0); NEUT # 6.7 10*3/uL (2.3-7.9); NEUT % 67.6 % (47.0-73.0); PLATELET COUNT AUTOMATED 241 10*3/uL (130-400); RED BLOOD COUNT 4.05 10*6/uL (4.50-5.90); RED CELL DISTRI WIDTH 13.6 % (0-14.5); WHITE BLOOD COUNT 9.9 10*3/uL (4.8-10.8)
[2018-02-23 06:43] LABS: ALBUMIN 2.4 gm/dl (3.1-4.5); BUN 24 mg/dl (7-24); CHLORIDE 106 mmol/L (98-107); PHOSPHOROUS 2.6 mg/dL (2.5-4.9); POTASSIUM 3.1 mmol/L (3.5-5.1); SGOT/AST 25 IU/L (3-35); SGPT/ALT 21 U/L (12-78); SODIUM 137 mmol/L (136-145); TOTAL PROTEIN 6.2 gm/dL (6.4-8.2)
[2018-02-23 06:48] LABS: ALKALINE PHOSPHATASE 92 U/L (45-117); FREE T4 1.28 ng/dl (0.76-1.46)
[2018-02-23 06:57] LABS: ACT PARTIAL THROMBO TIME 40.8 SECONDS (20.8-31.5); INTERNATIONAL NORM RATIO 1.3 (2.0-3.5)
[2018-02-23 08:00] VITALS: BP 134/82
[2018-02-23 12:00] VITALS: BP 117/62
[2018-02-23 16:00] VITALS: BP 121/80
[2018-02-23 20:00] VITALS: BP 118/71
[2018-02-24] VITALS: BP 138/81
[2018-02-24 07:13] LABS: BASO % 0.5 % (0.0-1.0); EOS # 0.1 10*3/uL (0.0-0.4); EOS % 1.8 % (1.0-4.0); HEMOGLOBIN 12.5 g/dl (14.0-18.0); LYMPH # 2.1 10*3/uL (1.3-4.4); LYMPH % 26.8 % (27.0-41.0); MEAN CELL VOLUME 92.4 fl (80.0-94.0); MEAN CORPUSCULAR HGB 29.6 pg (27.0-31.0); MEAN CORPUSCULAR HGB CONC 32.1 g/dl (33.0-37.0); MEAN PLATELET VOLUME 9.3 fl (9.6-12.3); MONO # 0.8 10*3/uL (0.1-1.0); MONO % 9.6 % (3.0-9.0); NEUT # 4.8 10*3/uL (2.3-7.9); PLATELET COUNT AUTOMATED 270 10*3/uL (130-400); RED BLOOD COUNT 4.22 10*6/uL (4.50-5.90); RED CELL DISTRI WIDTH 13.6 % (0-14.5); WHITE BLOOD COUNT 7.9 10*3/uL (4.8-10.8)
[2018-02-24 07:26] LABS: BUN 25 mg/dl (7-24); CHLORIDE 107 mmol/L (98-107); CREATININE 1.09 mg/dL (0.70-1.30); POTASSIUM 3.3 mmol/L (3.5-5.1); SODIUM 140 mmol/L (136-145)
[2018-02-24 08:00] VITALS: BP 144/85
[2018-02-24 12:00] VITALS: BP 121/74
[2018-02-24 16:00] VITALS: BP 116/67
[2018-02-24 20:00] VITALS: BP 124/70
[2018-02-25] VITALS: BP 129/73
[2018-02-25 06:24] LABS: BASO # 0.1 10*3/uL (0.0-0.1); BASO % 0.7 % (0.0-1.0); EOS # 0.3 10*3/uL (0.0-0.4); EOS % 3.8 % (1.0-4.0); HEMATOCRIT 40.5 % (42.0-52.0); LYMPH # 2.1 10*3/uL (1.3-4.4); LYMPH % 28.9 % (27.0-41.0); MEAN CELL VOLUME 92.7 fl (80.0-94.0); MEAN CORPUSCULAR HGB 29.7 pg (27.0-31.0); MEAN CORPUSCULAR HGB CONC 32.1 g/dl (33.0-37.0); MEAN PLATELET VOLUME 9.5 fl (9.6-12.3); MONO # 0.6 10*3/uL (0.1-1.0); MONO % 7.8 % (3.0-9.0); NEUT # 4.3 10*3/uL (2.3-7.9); NEUT % 58.4 % (47.0-73.0); PLATELET COUNT AUTOMATED 292 10*3/uL (130-400); RED BLOOD COUNT 4.37 10*6/uL (4.50-5.90); RED CELL DISTRI WIDTH 13.7 % (0-14.5); WHITE BLOOD COUNT 7.3 10*3/uL (4.8-10.8)
[2018-02-25 06:36] LABS: BUN 25 mg/dl (7-24); CHLORIDE 108 mmol/L (98-107); CREATININE 1.15 mg/dL (0.70-1.30); POTASSIUM 3.3 mmol/L (3.5-5.1); SODIUM 141 mmol/L (136-145)
[2018-02-25 08:00] VITALS: BP 150/97
[2018-02-25 12:00] VITALS: BP 128/78
[2018-02-25 16:00] VITALS: BP 115/62
[2018-02-25 20:00] VITALS: BP 104/53
[2018-02-26] VITALS: BP 153/89
[2018-02-26 08:00] VITALS: BP 113/78
[2018-02-26 12:00] VITALS: BP 120/80
[2018-02-26 16:00] VITALS: BP 140/84
[2018-02-26 20:00] VITALS: BP 123/86
[2018-02-27] VITALS: BP 138/82; BP 168/96
[2018-02-27 06:16] LABS: BASO % 0.4 % (0.0-1.0); EOS # 0.7 10*3/uL (0.0-0.4); EOS % 9.5 % (1.0-4.0); HEMATOCRIT 39.9 % (42.0-52.0); HEMOGLOBIN 12.9 g/dl (14.0-18.0); LYMPH % 28.9 % (27.0-41.0); MEAN CELL VOLUME 92.4 fl (80.0-94.0); MEAN CORPUSCULAR HGB 29.9 pg (27.0-31.0); MEAN CORPUSCULAR HGB CONC 32.3 g/dl (33.0-37.0); MEAN PLATELET VOLUME 8.9 fl (9.6-12.3); MONO # 0.6 10*3/uL (0.1-1.0); MONO % 8.9 % (3.0-9.0); NEUT # 3.6 10*3/uL (2.3-7.9); PLATELET COUNT AUTOMATED 309 10*3/uL (130-400); RED BLOOD COUNT 4.32 10*6/uL (4.50-5.90); RED CELL DISTRI WIDTH 13.4 % (0-14.5)
[2018-02-27 06:43] LABS: BUN 18 mg/dl (7-24); CHLORIDE 108 mmol/L (98-107); CREATININE 1.12 mg/dL (0.70-1.30); POTASSIUM 3.1 mmol/L (3.5-5.1); SODIUM 144 mmol/L (136-145)
[2018-02-27 08:00] VITALS: BP 147/89
[2018-02-27 12:00] VITALS: BP 110/50
== END 2018-02-27 14:32 | disposition other institution (70) | DRG 871 ==
LOC: ED 14:55 → 5E 17:01 → EDHOLD 17:01 → 5E 17:19
PROVIDERS: Emergency Medicine; Family Medicine; Internal Medicine; Student in an Organized Health Care Education/Training Program
DX: A41.9 Sepsis, unspecified organism (principal); N17.0 Acute kidney failure with tubular necrosis; E43 Unspecified severe protein-calorie malnutrition; G93.41 Metabolic encephalopathy; I50.22 Chronic systolic (congestive) heart failure; I48.2 Chronic atrial fibrillation; I13.0 Hypertensive heart and chronic kidney disease with heart failure and stage 1 through stage 4 chronic kidney disease, or unspecified chronic kidney disease; D64.9 Anemia, unspecified; R13.10 Dysphagia, unspecified; E86.0 Dehydration; N39.0 Urinary tract infection, site not specified; E87.1 Hypo-osmolality and hyponatremia; F03.90 Unspecified dementia, unspecified severity, without behavioral disturbance, psychotic disturbance, mood disturbance, and anxiety; J44.9 Chronic obstructive pulmonary disease, unspecified; I25.10 Atherosclerotic heart disease of native coronary artery without angina pectoris; R73.9 Hyperglycemia, unspecified; R29.6 Repeated falls; E55.9 Vitamin D deficiency, unspecified; E87.6 Hypokalemia; R65.20 Severe sepsis without septic shock; B96.20 Unspecified Escherichia coli [E. coli] as the cause of diseases classified elsewhere; N18.3 Chronic kidney disease, stage 3 (moderate); N40.0 Benign prostatic hyperplasia without lower urinary tract symptoms; E03.9 Hypothyroidism, unspecified; Z95.5 Presence of coronary angioplasty implant and graft; Z82.49 Family history of ischemic heart disease and other diseases of the circulatory system; Z81.8 Family history of other mental and behavioral disorders; Z84.1 Family history of disorders of kidney and ureter; Z88.8 Allergy status to other drugs, medicaments and biological substances; Z79.899 Other long term (current) drug therapy; Z68.26 Body mass index [BMI] 26.0-26.9, adult

== ENCOUNTER 2018-04-26 02:24 | Inpatient (IN) | payer MEDICARE, OTHER ==
[~2018-04-26] VITALS: Ht 182.8 cm; Wt 83.0 kg
--- NOTE | ~2018-04-26 | EKG ---
[place], [place] ELECTROCARDIOGRAM REPORT NAME: MERVIN SARABIA UNIT #: [id number] ROOM: 509 DOCTOR: EPIPHANY DRAFT REPORT BIRTHDATE: [birth year] [facility] Test Date: 2018-04-26 Test Time: 02:36:18 Pat Name: MERVIN SARABIA Department: Room: Gender: Otr Refrigerated Cdl Truck Driver: : 1930 Requested By: JANIA VELARDE Order Number: [id number] Reading MD: José Manuel Desai MD Measurements Intervals [place] Rate: 80 P: [place]: QRS: -18 QRSD: 107 T: -2 QT: 415 QTc: 479 Interpretive Statements Atrial fibrillation Inferior infarct, age indeterminate Electronically Signed On 04-26-2018 6:34:53 PDT by José Manuel Desai MD CM:EKGRPT:ELECTROCARDIOGRAM REPORT [id number] JANIA SESAY DRAFT REPORT JANIA VELARDE DO
[2018-04-26 02:24] VITALS: BP 100/72
[~2018-04-26 02:24] MED LIST changes: +AQUAPHOR396 GM T; +LOSARTAN POTAS100 M1 PO; +NORVASC5 MG PO; +TYLENOL325 M1 PO; +XARE20MG PO
[2018-04-26] MEDS ORDERED: KLOR-CON M1010 ME1 PO (02:27)
[2018-04-26 02:45] LABS: BASO % 0.2 % (0.0-1.0); EOS # 0.1 10*3/uL (0.0-0.4); EOS % 0.9 % (1.0-4.0); HEMATOCRIT 37.2 % (42.0-52.0); HEMOGLOBIN 11.9 g/dl (14.0-18.0); LYMPH # 2.2 10*3/uL (1.3-4.4); LYMPH % 25.3 % (27.0-41.0); MEAN CORPUSCULAR HGB 29.8 pg (27.0-31.0); MEAN PLATELET VOLUME 9.3 fl (9.6-12.3); MONO # 0.5 10*3/uL (0.1-1.0); MONO % 6.1 % (3.0-9.0); NEUT # 5.8 10*3/uL (2.3-7.9); NEUT % 67.4 % (47.0-73.0); PLATELET COUNT AUTOMATED 214 10*3/uL (130-400); RED CELL DISTRI WIDTH 14.1 % (0-14.5); WHITE BLOOD COUNT 8.6 10*3/uL (4.8-10.8)
[2018-04-26 02:58] LABS: ACT PARTIAL THROMBO TIME 39.3 SECONDS (20.8-31.5); INTERNATIONAL NORM RATIO 1.3 (2.0-3.5)
[2018-04-26 03:02] LABS: ALBUMIN 2.7 gm/dl (3.1-4.5); ALKALINE PHOSPHATASE 77 U/L (45-117); BUN 30 mg/dl (7-24); CHLORIDE 108 mmol/L (98-107); CREATININE 1.53 mg/dL (0.70-1.30); POTASSIUM 3.4 mmol/L (3.5-5.1); SGOT/AST 8 IU/L (3-35); SGPT/ALT 10 U/L (12-78); SODIUM 143 mmol/L (136-145); TOTAL PROTEIN 6.3 gm/dL (6.4-8.2)
[2018-04-26 03:03] LABS: TROPONIN I < 0.015 ng/ml (<0.045)
[2018-04-26 04:26] VITALS: BP 108/70
[2018-04-26 06:29] LABS: BASO % 0.2 % (0.0-1.0); EOS # 0.1 10*3/uL (0.0-0.4); EOS % 0.6 % (1.0-4.0); HEMATOCRIT 40.2 % (42.0-52.0); HEMOGLOBIN 12.6 g/dl (14.0-18.0); LYMPH # 1.5 10*3/uL (1.3-4.4); LYMPH % 15.6 % (27.0-41.0); MEAN CELL VOLUME 94.1 fl (80.0-94.0); MEAN CORPUSCULAR HGB 29.5 pg (27.0-31.0); MEAN CORPUSCULAR HGB CONC 31.3 g/dl (33.0-37.0); MEAN PLATELET VOLUME 9.7 fl (9.6-12.3); MONO # 0.6 10*3/uL (0.1-1.0); MONO % 6.3 % (3.0-9.0); NEUT # 7.6 10*3/uL (2.3-7.9); PLATELET COUNT AUTOMATED 210 10*3/uL (130-400); RED BLOOD COUNT 4.27 10*6/uL (4.50-5.90); RED CELL DISTRI WIDTH 14.2 % (0-14.5); WHITE BLOOD COUNT 9.8 10*3/uL (4.8-10.8)
[2018-04-26 06:34] LABS: CREATININE 1.44 mg/dL (0.70-1.30); PHOSPHOROUS 3.4 mg/dL (2.5-4.9); POTASSIUM 3.5 mmol/L (3.5-5.1)
[2018-04-26 08:00] VITALS: BP 180/100
[2018-04-26 12:00] VITALS: BP 145/88
[2018-04-26 15:28] LABS: BILIRUBIN NEGATIVE (NEGATIVE); BLOOD 3+ (NEGATIVE); CLARITY TURBID (CLEAR); COLOR YELLOW (YELLOW); GLUCOSE NEGATIVE (NEGATIVE); KETONE NEGATIVE (NEGATIVE); LEUKO ESTERASE 3+ (NEGATIVE); NITRITE POSITIVE (NEGATIVE); SPECIFIC GRAVITY 1.015 (1.005-1.030); UROBILINOGEN 0.2 E.U./dl (0.2-1.0)
[2018-04-26 15:40] LABS: WBC TNTC wbc/hpf (0-5)
[2018-04-26 16:00] VITALS: BP 136/90
[2018-04-26 20:00] VITALS: BP 152/96
[2018-04-27] VITALS: BP 139/71
[2018-04-27 06:30] LABS: BASO % 0.3 % (0.0-1.0); EOS # 0.1 10*3/uL (0.0-0.4); EOS % 1.9 % (1.0-4.0); HEMATOCRIT 34.8 % (42.0-52.0); HEMOGLOBIN 11.1 g/dl (14.0-18.0); LYMPH # 1.4 10*3/uL (1.3-4.4); LYMPH % 20.6 % (27.0-41.0); MEAN CELL VOLUME 94.1 fl (80.0-94.0); MEAN CORPUSCULAR HGB CONC 31.9 g/dl (33.0-37.0); MEAN PLATELET VOLUME 9.6 fl (9.6-12.3); MONO # 0.6 10*3/uL (0.1-1.0); MONO % 8.9 % (3.0-9.0); NEUT # 4.7 10*3/uL (2.3-7.9); PLATELET COUNT AUTOMATED 205 10*3/uL (130-400); RED CELL DISTRI WIDTH 14.1 % (0-14.5); WHITE BLOOD COUNT 6.9 10*3/uL (4.8-10.8)
[2018-04-27 06:37] LABS: CREATININE 1.38 mg/dL (0.70-1.30); POTASSIUM 3.1 mmol/L (3.5-5.1)
[2018-04-27 08:00] VITALS: BP 136/86; BP 140/90
[2018-04-27 12:00] VITALS: BP 132/72
[2018-04-27 16:00] VITALS: BP 135/92
[2018-04-27 20:00] VITALS: BP 136/87
[2018-04-28] VITALS: BP 124/68
[2018-04-28 07:35] LABS: BASO % 0.3 % (0.0-1.0); EOS # 0.4 10*3/uL (0.0-0.4); EOS % 5.9 % (1.0-4.0); HEMATOCRIT 37.2 % (42.0-52.0); HEMOGLOBIN 11.8 g/dl (14.0-18.0); LYMPH # 1.7 10*3/uL (1.3-4.4); LYMPH % 26.6 % (27.0-41.0); MEAN CELL VOLUME 94.2 fl (80.0-94.0); MEAN CORPUSCULAR HGB 29.9 pg (27.0-31.0); MEAN CORPUSCULAR HGB CONC 31.7 g/dl (33.0-37.0); MEAN PLATELET VOLUME 9.6 fl (9.6-12.3); MONO # 0.4 10*3/uL (0.1-1.0); MONO % 6.3 % (3.0-9.0); NEUT # 3.8 10*3/uL (2.3-7.9); NEUT % 60.6 % (47.0-73.0); PLATELET COUNT AUTOMATED 234 10*3/uL (130-400); RED BLOOD COUNT 3.95 10*6/uL (4.50-5.90); RED CELL DISTRI WIDTH 13.8 % (0-14.5); WHITE BLOOD COUNT 6.3 10*3/uL (4.8-10.8)
[2018-04-28 08:00] LABS: ALBUMIN 2.8 gm/dl (3.1-4.5); CREATININE 1.39 mg/dL (0.70-1.30); POTASSIUM 3.1 mmol/L (3.5-5.1); TOTAL PROTEIN 6.5 gm/dL (6.4-8.2)
[2018-04-28 08:10] VITALS: BP 126/80
[2018-04-28] MEDS ORDERED: DOXYCYCLINE100 M3 PO (10:39)
[2018-04-28] MEDS ORDERED: CEFUROXIME AXE250 MG PO (10:39)
[2018-04-28 12:00] VITALS: BP 126/78
== END 2018-04-28 13:12 | DRG 871 ==
LOC: ED 02:24 → 5E 04:25 → EDHOLD 04:25 → 5E 04:48
PROVIDERS: Internal Medicine; Student in an Organized Health Care Education/Training Program
DX: A41.9 Sepsis, unspecified organism (principal); J18.9 Pneumonia, unspecified organism; N17.0 Acute kidney failure with tubular necrosis; E43 Unspecified severe protein-calorie malnutrition; G93.41 Metabolic encephalopathy; J44.0 Chronic obstructive pulmonary disease with (acute) lower respiratory infection; R13.10 Dysphagia, unspecified; N18.3 Chronic kidney disease, stage 3 (moderate); I48.2 Chronic atrial fibrillation; D64.9 Anemia, unspecified; R17 Unspecified jaundice; S01.01XA Laceration without foreign body of scalp, initial encounter; E87.6 Hypokalemia; R65.20 Severe sepsis without septic shock; D50.9 Iron deficiency anemia, unspecified; D72.810 Lymphocytopenia; E03.9 Hypothyroidism, unspecified; I87.2 Venous insufficiency (chronic) (peripheral); R73.9 Hyperglycemia, unspecified; R29.6 Repeated falls; Y95 Nosocomial condition; N40.0 Benign prostatic hyperplasia without lower urinary tract symptoms; I25.10 Atherosclerotic heart disease of native coronary artery without angina pectoris; I12.9 Hypertensive chronic kidney disease with stage 1 through stage 4 chronic kidney disease, or unspecified chronic kidney disease; E55.9 Vitamin D deficiency, unspecified; E73.9 Lactose intolerance, unspecified; S63.250A Unspecified dislocation of right index finger, initial encounter; W18.30XA Fall on same level, unspecified, initial encounter; Y93.89 Activity, other specified; Y92.128 Other place in nursing home as the place of occurrence of the external cause; Y99.8 Other external cause status; Z88.5 Allergy status to narcotic agent; Z79.899 Other long term (current) drug therapy; Z79.01 Long term (current) use of anticoagulants; Z84.1 Family history of disorders of kidney and ureter; Z82.0 Family history of epilepsy and other diseases of the nervous system; Z68.28 Body mass index [BMI] 28.0-28.9, adult

== ENCOUNTER 2018-05-13 13:06 | Emergency (ER) | payer MEDICARE, OTHER ==
[~2018-05-13] VITALS: Ht 185.4 cm; Wt 65.8 kg
--- NOTE | ~2018-05-13 | EKG ---
[place], [place] ELECTROCARDIOGRAM REPORT NAME: MERVIN SARABIA UNIT #: [id number] ROOM: DOCTOR: EPIPHANY DRAFT REPORT BIRTHDATE: [birth year] [facility] Test Date: 2018-05-13 Test Time: 13:16:23 Pat Name: MERVIN SARABIA Department: Room: Gender: Dry Cleaner Hand: : 1930 Requested By: DEVORA GUTIERREZ Order Number: [id number] Reading MD: Devin Mendez MD Measurements Intervals [place] Rate: 77 P: [place]: QRS: -7 QRSD: 99 T: 16 QT: 390 QTc: 442 Interpretive Statements Atrial fibrillation Compared to ECG 04/26/2018 02:36:18 Myocardial infarct Age undetermined Electronically Signed On 05-17-2018 16:01:00 PDT by Devin Mendez MD CM:EKGRPT:ELECTROCARDIOGRAM REPORT [id number] DEVORA JAMISON DRAFT REPORT DEVORA GUTIERREZ M.D.
[~2018-05-13 13:06] MED LIST changes: +CEFUROXIME AXE250 MG PO; +KLOR-CON M1010 ME1 PO
[2018-05-13 13:58] LABS: BASO % 0.6 % (0.0-1.0); EOS # 0.2 10*3/uL (0.0-0.4); EOS % 2.8 % (1.0-4.0); HEMATOCRIT 37.5 % (42.0-52.0); HEMOGLOBIN 11.8 g/dl (14.0-18.0); LYMPH # 1.7 10*3/uL (1.3-4.4); LYMPH % 23.2 % (27.0-41.0); MEAN CELL VOLUME 94.9 fl (80.0-94.0); MEAN CORPUSCULAR HGB 29.9 pg (27.0-31.0); MEAN CORPUSCULAR HGB CONC 31.5 g/dl (33.0-37.0); MEAN PLATELET VOLUME 9.4 fl (9.6-12.3); MONO # 0.5 10*3/uL (0.1-1.0); MONO % 7.2 % (3.0-9.0); NEUT # 4.7 10*3/uL (2.3-7.9); NEUT % 65.9 % (47.0-73.0); PLATELET COUNT AUTOMATED 276 10*3/uL (130-400); RED BLOOD COUNT 3.95 10*6/uL (4.50-5.90); RED CELL DISTRI WIDTH 13.9 % (0-14.5); WHITE BLOOD COUNT 7.1 10*3/uL (4.8-10.8)
[2018-05-13 14:12] LABS: ALBUMIN 2.6 gm/dl (3.1-4.5); ALKALINE PHOSPHATASE 81 U/L (45-117); BUN 20 mg/dl (7-24); CHLORIDE 106 mmol/L (98-107); CREATININE 1.24 mg/dL (0.70-1.30); POTASSIUM 3.8 mmol/L (3.5-5.1); SGOT/AST 12 IU/L (3-35); SGPT/ALT 11 U/L (12-78); SODIUM 139 mmol/L (136-145); TOTAL PROTEIN 6.2 gm/dL (6.4-8.2)
[2018-05-13 14:13] LABS: TROPONIN I < 0.015 ng/ml (<0.045)
[2018-05-13 16:16] VITALS: BP 125/80
== END 2018-05-13 17:12 | disposition home or self-care (01) ==
LOC: ED 13:06
PROVIDERS: Emergency Medicine
DX: R07.89 Other chest pain (principal); I25.10 Atherosclerotic heart disease of native coronary artery without angina pectoris; J44.9 Chronic obstructive pulmonary disease, unspecified; I48.2 Chronic atrial fibrillation; E03.9 Hypothyroidism, unspecified; I13.0 Hypertensive heart and chronic kidney disease with heart failure and stage 1 through stage 4 chronic kidney disease, or unspecified chronic kidney disease; N18.3 Chronic kidney disease, stage 3 (moderate); I50.20 Unspecified systolic (congestive) heart failure; Z98.890 Other specified postprocedural states; Z79.899 Other long term (current) drug therapy; Z88.5 Allergy status to narcotic agent

== ENCOUNTER 2018-09-22 23:05 | Inpatient (IN) | payer MEDICARE, OTHER ==
[~2018-09-22] VITALS: Ht 182.8 cm; Wt 83.9 kg
--- NOTE | ~2018-09-22 | EKG ---
[place], [place] ELECTROCARDIOGRAM REPORT NAME: MERVIN SARABIA UNIT #: [id number] ROOM: 419 DOCTOR: YAQUELIN DRAFT REPORT BIRTHDATE: [birth year] [facility] Test Date: 2018-09-23 Test Time: 04:58:15 Pat Name: MERVIN SARABIA Department: Room: 419 Gender: M Cutter Grinder: Inder Guy : 1930 Requested By: JANIA VELARDE Order Number: [id number] Reading MD: Jayden Eden MD Measurements Intervals [place] Rate: 99 P: [place]: QRS: 7 QRSD: 108 T: 34 QT: 401 QTc: 515 Interpretive Statements Atrial fibrillation Paired ventricular premature complexes Borderline T wave abnormalities Compared to ECG 05/13/2018 13:16:23 Ventricular premature complex(es) now present T-wave abnormality now present Electronically Signed On 09-30-2018 10:41:44 PST by Jayden Eden MD CM:EKGRPT:ELECTROCARDIOGRAM REPORT [id number] JANIA SESAY DRAFT REPORT JANIA VELARDE DO
--- NOTE | ~2018-09-22 | EKG ---
[place], [place] ELECTROCARDIOGRAM REPORT NAME: MERVIN SARABIA UNIT #: [id number] ROOM: 419 DOCTOR: YAQUELIN DRAFT REPORT BIRTHDATE: [birth year] [facility] Test Date: 2018-09-22 Test Time: 23:08:27 Pat Name: MERVIN SARABIA Department: Room: 419 Gender: M Big Data Software Engineer: Minoo Enriquez : 1930 Requested By: JANIA VELARDE Order Number: [id number] Reading MD: José Manuel Desai MD Measurements Intervals [place] Rate: 89 P: [place]: QRS: 6 QRSD: 99 T: 18 QT: 398 QTc: 485 Interpretive Statements Atrial fibrillation Ventricular premature complex Abnormal R-wave progression, early transition Baseline wander in lead(s) V4 Compared to ECG 05/13/2018 13:16:23 Ventricular premature complex(es) now present Electronically Signed On 09-23-2018 12:55:50 PST by José Manuel Desai MD CM:EKGRPT:ELECTROCARDIOGRAM REPORT [id number] JANIA SESAY DRAFT REPORT JANIA VELARDE DO
--- NOTE | ~2018-09-22 | EKG ---
[place], [place] ELECTROCARDIOGRAM REPORT NAME: MERVIN SARABIA UNIT #: [id number] ROOM: 419 DOCTOR: YAQUELIN DRAFT REPORT BIRTHDATE: [birth year] [facility] Test Date: 2018-09-23 Test Time: 01:32:10 Pat Name: MERVIN SARABIA Department: Room: 419 Gender: M School Traffic Supervisor: Minoo Enriquez : 1930 Requested By: JANIA VELARDE Order Number: [id number] Reading MD: José Manuel Desai MD Measurements Intervals [place] Rate: 83 P: ID: QRS: 3 QRSD: 96 T: 18 QT: 399 QTc: 469 Interpretive Statements Atrial fibrillation Compared to ECG 09/22/2018 PVCs are not now present Electronically Signed On 09-23-2018 13:02:05 PST by JoséM anuel Desai MD CM:EKGRPT:ELECTROCARDIOGRAM REPORT [id number] 1302 JANIA SESAY DRAFT REPORT JANIA VELARDE DO
[2018-09-22 23:06] VITALS: BP 148/93
[2018-09-22 23:20] LABS: BASO % 0.3 % (0.0-1.0); EOS # 0.4 10*3/uL (0.0-0.4); EOS % 5.2 % (1.0-4.0); HEMATOCRIT 39.8 % (42.0-52.0); HEMOGLOBIN 12.9 g/dl (14.0-18.0); LYMPH # 2.4 10*3/uL (1.3-4.4); LYMPH % 35.8 % (27.0-41.0); MEAN CELL VOLUME 93.9 fl (80.0-94.0); MEAN CORPUSCULAR HGB 30.4 pg (27.0-31.0); MEAN CORPUSCULAR HGB CONC 32.4 g/dl (33.0-37.0); MEAN PLATELET VOLUME 9.6 fl (9.6-12.3); MONO # 0.6 10*3/uL (0.1-1.0); MONO % 8.4 % (3.0-9.0); NEUT # 3.3 10*3/uL (2.3-7.9); PLATELET COUNT AUTOMATED 212 10*3/uL (130-400); RED BLOOD COUNT 4.24 10*6/uL (4.50-5.90); RED CELL DISTRI WIDTH 14.4 % (0-14.5); WHITE BLOOD COUNT 6.7 10*3/uL (4.8-10.8)
[2018-09-22 23:30] LABS: ACT PARTIAL THROMBO TIME 35.2 SECONDS (20.8-31.5); INTERNATIONAL NORM RATIO 1.2 (2.0-3.5)
[2018-09-22 23:37] LABS: ALBUMIN 2.8 gm/dl (3.1-4.5); ALKALINE PHOSPHATASE 68 U/L (45-117); BUN 26 mg/dl (7-24); CHLORIDE 105 mmol/L (98-107); POTASSIUM 3.8 mmol/L (3.5-5.1); SGOT/AST 11 IU/L (3-35); SGPT/ALT 12 U/L (12-78); SODIUM 138 mmol/L (136-145); TOTAL PROTEIN 6.6 gm/dL (6.4-8.2)
[2018-09-22 23:39] VITALS: BP 96/62
[2018-09-22 23:41] LABS: TROPONIN I < 0.015 ng/ml (<0.045)
[2018-09-23 00:09] VITALS: BP 130/83
[2018-09-23] MEDS ORDERED: DEPAKOTE250 MG PO (00:19)
[2018-09-23] MEDS ORDERED: EXELON1 EACH TD (00:20)
[2018-09-23] MEDS ORDERED: FLOMAX0.4 MG PO (00:21)
[2018-09-23] MEDS ORDERED: NAMENDA10 MG PO (00:22)
--- NOTE | 2018-09-23 00:33 | NUR ---
PT HAS COUPLE SMALL SCABS BILAT ARMS INTACT NON DRAINING.SMALL AREA OF REDNESS NOTED TO COCCYX BLANCHABLE.
--- NOTE | 2018-09-23 01:01 | NUR ---
PT FAMILY REQUEST "[facility]" FOR PASSWORD.
[2018-09-23 01:20] VITALS: BP 122/66
--- NOTE | 2018-09-23 01:26 | NUR ---
Time: A 86 year old M admitted to 4E under services of ANIBAL LEBLANC DO. Pt. arrived via bed from ER. Chief complaint: CHEST PAIN. YONATAN HENDERSON
[2018-09-23 06:05] LABS: ALBUMIN 2.7 gm/dl (3.1-4.5); ALKALINE PHOSPHATASE 65 U/L (45-117); BUN 24 mg/dl (7-24); CHLORIDE 105 mmol/L (98-107); CHOLESTEROL 132 mg/dL (<200); CREATININE 1.33 mg/dL (0.70-1.30); HDL CHOLESTEROL 74 mg/dl (40-60); LDL CHOLESTEROL 50 mg/dL (9-159); PHOSPHOROUS 3.6 mg/dL (2.5-4.9); POTASSIUM 3.8 mmol/L (3.5-5.1); SGOT/AST 13 IU/L (3-35); SGPT/ALT 11 U/L (12-78); SODIUM 140 mmol/L (136-145); TOTAL PROTEIN 6.5 gm/dL (6.4-8.2); TRIGLYCERIDES 40 mg/dl (<150); VLDL CHOLESTEROL 8 mg/dL (6-40)
[2018-09-23 06:06] LABS: FREE T4 0.91 ng/dl (0.76-1.46)
[2018-09-23 06:54] LABS: BASO % 0.4 % (0.0-1.0); EOS # 0.3 10*3/uL (0.0-0.4); EOS % 6.2 % (1.0-4.0); HEMATOCRIT 37.3 % (42.0-52.0); LYMPH # 1.9 10*3/uL (1.3-4.4); LYMPH % 34.7 % (27.0-41.0); MEAN CELL VOLUME 94.4 fl (80.0-94.0); MEAN CORPUSCULAR HGB 30.4 pg (27.0-31.0); MEAN CORPUSCULAR HGB CONC 32.2 g/dl (33.0-37.0); MEAN PLATELET VOLUME 9.8 fl (9.6-12.3); MONO # 0.4 10*3/uL (0.1-1.0); MONO % 7.7 % (3.0-9.0); NEUT # 2.7 10*3/uL (2.3-7.9); NEUT % 50.6 % (47.0-73.0); PLATELET COUNT AUTOMATED 198 10*3/uL (130-400); RED BLOOD COUNT 3.95 10*6/uL (4.50-5.90); RED CELL DISTRI WIDTH 14.4 % (0-14.5); WHITE BLOOD COUNT 5.3 10*3/uL (4.8-10.8)
--- NOTE | 2018-09-23 07:00 | NUR ---
PT SLEEPING. RESPS REG/EASY WITH NO DISTRESS NOTED. BEDSIDE REPORT RECEIVED FROM GAUTAM CALLAHAN. BED LOW
[2018-09-23 07:29] LABS: INTERNATIONAL NORM RATIO 1.2 (2.0-3.5)
[2018-09-23 08:00] VITALS: BP 122/78
--- NOTE | 2018-09-23 08:14 | NUR ---
24 HR CHART CHECK COMPLETE
--- NOTE | 2018-09-23 09:00 | NUR ---
patient is parts counterman resident of [place] and will return when medically stable
[2018-09-23 10:11] LABS: BILIRUBIN NEGATIVE (NEGATIVE); BLOOD NEGATIVE (NEGATIVE); CLARITY SL CLOUDY (CLEAR); COLOR YELLOW (YELLOW); GLUCOSE NEGATIVE (NEGATIVE); KETONE NEGATIVE (NEGATIVE); LEUKO ESTERASE NEGATIVE (NEGATIVE); NITRITE NEGATIVE (NEGATIVE); SPECIFIC GRAVITY 1.015 (1.005-1.030); UROBILINOGEN 0.2 E.U./dl (0.2-1.0)
[2018-09-23 10:31] LABS: EPITHELIAL CELLS 0-2
[2018-09-23 12:00] VITALS: BP 136/94
[2018-09-23 16:00] VITALS: BP 139/70
[2018-09-23 20:00] VITALS: BP 162/90
[2018-09-24] VITALS: BP 153/90
[2018-09-24 06:26] LABS: BASO % 0.6 % (0.0-1.0); EOS # 0.4 10*3/uL (0.0-0.4); EOS % 5.8 % (1.0-4.0); HEMATOCRIT 40.1 % (42.0-52.0); HEMOGLOBIN 12.7 g/dl (14.0-18.0); LYMPH # 2.2 10*3/uL (1.3-4.4); LYMPH % 31.2 % (27.0-41.0); MEAN CELL VOLUME 95.2 fl (80.0-94.0); MEAN CORPUSCULAR HGB 30.2 pg (27.0-31.0); MEAN CORPUSCULAR HGB CONC 31.7 g/dl (33.0-37.0); MEAN PLATELET VOLUME 9.9 fl (9.6-12.3); MONO # 0.5 10*3/uL (0.1-1.0); MONO % 7.4 % (3.0-9.0); NEUT # 3.8 10*3/uL (2.3-7.9); NEUT % 54.6 % (47.0-73.0); PLATELET COUNT AUTOMATED 228 10*3/uL (130-400); RED BLOOD COUNT 4.21 10*6/uL (4.50-5.90); RED CELL DISTRI WIDTH 14.4 % (0-14.5)
[2018-09-24 07:06] LABS: BUN 26 mg/dl (7-24); CHLORIDE 108 mmol/L (98-107); CREATININE 1.32 mg/dL (0.70-1.30); POTASSIUM 3.8 mmol/L (3.5-5.1); SODIUM 143 mmol/L (136-145)
[2018-09-24 08:15] VITALS: BP 148/86
--- NOTE | 2018-09-24 08:57 | NUR ---
NOTIFIED DR. Mahesh BAER OF LOW VALPROIC ACIC LEVEL, SAID TO MAINTAIN CURRENT ORDERS.
--- NOTE | 2018-09-24 10:26 | NUR ---
LONDON MEDELLIN FROM [facility] CALLED TO ASK ABOUT PT STATUS. INFORMED HER THE DOCTORS HAVE NOT MADE THEIR ROUNDS ON HIM YET AND THAT I COULD PHONE HER ONCE THEY SEE HIM.
[2018-09-24] MEDS ORDERED: LEVOTHYROXINE137 MCG PO (11:31)
[2018-09-24 12:00] VITALS: BP 127/72
--- NOTE | 2018-09-24 13:54 | NUR ---
Discharge instructions reviewed with patient/family. Patient receptive and verbalizes understanding. Follow-up care arranged. Written instructions given to patient/family. ARCADIO OSBORN
== END 2018-09-24 13:54 | DRG 304 ==
LOC: ED 23:05 → 4E 09-23 00:14 → EDHOLD 09-23 00:14 → 4E 09-23 00:45
PROVIDERS: Emergency Medicine; Family Medicine; Student in an Organized Health Care Education/Training Program; ADMIT Internal Medicine
DX: I16.1 Hypertensive emergency (principal); N17.0 Acute kidney failure with tubular necrosis; G93.41 Metabolic encephalopathy; E43 Unspecified severe protein-calorie malnutrition; I50.42 Chronic combined systolic (congestive) and diastolic (congestive) heart failure; I13.0 Hypertensive heart and chronic kidney disease with heart failure and stage 1 through stage 4 chronic kidney disease, or unspecified chronic kidney disease; R07.9 Chest pain, unspecified; J44.9 Chronic obstructive pulmonary disease, unspecified; E03.9 Hypothyroidism, unspecified; E78.5 Hyperlipidemia, unspecified; E86.0 Dehydration; F03.90 Unspecified dementia, unspecified severity, without behavioral disturbance, psychotic disturbance, mood disturbance, and anxiety; I10 Essential (primary) hypertension; I25.118 Atherosclerotic heart disease of native coronary artery with other forms of angina pectoris; N40.0 Benign prostatic hyperplasia without lower urinary tract symptoms; K46.9 Unspecified abdominal hernia without obstruction or gangrene; I48.2 Chronic atrial fibrillation; I11.0 Hypertensive heart disease with heart failure; I87.8 Other specified disorders of veins; R73.9 Hyperglycemia, unspecified; N18.3 Chronic kidney disease, stage 3 (moderate); Z88.5 Allergy status to narcotic agent; Z91.81 History of falling; Z87.01 Personal history of pneumonia (recurrent); Z95.5 Presence of coronary angioplasty implant and graft; Z82.49 Family history of ischemic heart disease and other diseases of the circulatory system; Z84.1 Family history of disorders of kidney and ureter; Z82.0 Family history of epilepsy and other diseases of the nervous system; Z79.899 Other long term (current) drug therapy

== ENCOUNTER 2018-11-06 18:31 | Inpatient (IN) | payer MEDICARE, OTHER ==
[~2018-11-06] VITALS: Ht 180.3 cm; Wt 80.5 kg
--- NOTE | ~2018-11-06 | PROC NOTE ---
[place], [place] [facility]EDURE NOTE [id number] #: [id number] ROOM: 409 DOCTOR: TIMOTHY RAMIREZ BIRTHDATE: [birth year] DOS: 11/07/2018 MODIFIED BARIUM SWALLOW LOCATION: [facility], Room is 409 bed 1. ORDERING PHYSICIAN: Dr. Ngo. RADIOLOGIST: Dr. Gonzalez. BACKGROUND INFORMATION: The patient is an 87-year-old male who was seen for a modified barium swallow. This test was ordered to rule out aspiration. This patient was seen at bedside earlier this date with recommendation for downgrade to puree and nectar thick liquids. The patient is confused, displays lingual tremor and consistent open mouth position, weakness and congested cough. He was unable to follow directions to fully complete oral assessment. Reports indicate he has been coughing with liquids. METHODS AND MATERIALS USED FOR THE EXAM: The patient was positioned in the lateral plane and the exam was viewed under fluoroscopy. The patient was presented with applesauce mixed with barium presented in half teaspoon amounts, thin liquid barium taken by cup and nectar thick liquid by cup. ORAL PHASE: Weak labial seal was noted around cup with anterior loss observed. Bolus formation was adequate. Oral transit was moderately impaired with puree and mildly impaired with nectar thick liquid. Tongue to palate contact was within normal limits. Tongue to posterior pharyngeal wall contact was moderately impaired. Velar functioning was within normal limits with no nasal regurgitation. PHARYNGEAL PHASE: The pharyngeal swallow was mildly delayed in initiation with all consistencies. His swallow was weak in general. Epiglottic function and laryngeal elevation were adequate with no penetration or aspiration. Pooling in the vallecula was observed. Patient did not appear aware of the residue and made no attempt to clear it. He was cued to dry swallow to clear it, but was not able to follow this direction. At times, he would eventually initiate a swallow, which would clear most of the residue. Liquid wash was not effective in fully clearing the residue. ESOPHAGEAL PHASE: This phase of the swallow was not formally assessed during this exam. IMPRESSIONS AND RECOMMENDATIONS: Based upon assessment results, this 87-year-old patient presents with a mild to moderate oropharyngeal dysphagia characterized by weak labial seal, slow oral transit, delayed swallow initiation with weak swallow in general and pooling in the vallecula. No penetration or aspiration was observed; however, his status places him at high risk for aspiration. Recommend a pureed diet and nectar thick liquids for safety. Followup therapy is recommended to improve safety with highest level diet. Treatment will focus on education, safe swallow precautions and strengthening [place], [place] PROCEDURE NOTE NAME: MERVIN SARABIA UNIT #: [id number] ROOM: [facility] DOCTOR: TIMOTHY RAMIREZ BIRTHDATE: [birth year] exercises. Results and recommendations were shared with the patient's nurse who verbalized understanding. Thank you very much for this referral. Should you have any questions regarding this patient, please contact the speech pathologist at [phone]. TIMOTHY RAMIREZ CM:PROCNOTE:PROCEDURE NOTE 1550 0132 TIMOTHY RAMIREZ
--- NOTE | ~2018-11-06 | EKG ---
[place], [place] ELECTROCARDIOGRAM REPORT NAME: MERVIN SARABIA UNIT #: [id number] ROOM: 409 DOCTOR: YAQUELIN DRAFT REPORT BIRTHDATE: [birth year] [facility] Test Date: 2018-11-06 Test Time: 18:48:23 Pat Name: MERVIN SARABIA Department: Room: 409 Gender: M Dye Operator: Kisha Peres : 1930 Requested By: ZACHARIAH ROGERS PA-C Order Number: [id number] Reading MD: José Manuel Desai MD Measurements Intervals [place] Rate: 73 P: [place]: QRS: 1 QRSD: 105 T: 4 QT: 419 QTc: 462 Interpretive Statements Atrial fibrillation Ventricular premature complex Borderline T abnormalities, diffuse leads Compared to ECG 09/23/2018 04:58:15 No significant changes Electronically Signed On 11-08-2018 19:22:28 PST by José Manuel Desai MD CM:EKGRPT:ELECTROCARDIOGRAM REPORT 21 ZACHARIAH JAMISON DRAFT REPORT ZACHARIAH ROGERS PA-C
[~2018-11-06 18:31] MED LIST changes: +DEPAKOTE250 MG PO; +EXELON1 EACH TD; +LEVOTHYROXINE137 MCG PO; +NAMENDA10 MG PO
[2018-11-06 18:39] VITALS: BP 144/72
[2018-11-06 19:10] LABS: BASO % 0.4 % (0.0-1.0); EOS # 0.1 10*3/uL (0.0-0.4); EOS % 1.3 % (1.0-4.0); HEMATOCRIT 43.7 % (42.0-52.0); HEMOGLOBIN 14.2 g/dl (14.0-18.0); LYMPH # 1.3 10*3/uL (1.3-4.4); LYMPH % 24.1 % (27.0-41.0); MEAN CELL VOLUME 93.8 fl (80.0-94.0); MEAN CORPUSCULAR HGB 30.5 pg (27.0-31.0); MEAN CORPUSCULAR HGB CONC 32.5 g/dl (33.0-37.0); MEAN PLATELET VOLUME 9.4 fl (9.6-12.3); MONO # 0.6 10*3/uL (0.1-1.0); MONO % 11.8 % (3.0-9.0); NEUT # 3.3 10*3/uL (2.3-7.9); PLATELET COUNT AUTOMATED 219 10*3/uL (130-400); RED BLOOD COUNT 4.66 10*6/uL (4.50-5.90); RED CELL DISTRI WIDTH 13.6 % (0-14.5); WHITE BLOOD COUNT 5.4 10*3/uL (4.8-10.8)
[2018-11-06 19:23] VITALS: BP 157/76
[2018-11-06 19:27] LABS: ALBUMIN 2.6 gm/dl (3.1-4.5); ALKALINE PHOSPHATASE 69 U/L (45-117); BUN 21 mg/dl (7-24); CHLORIDE 106 mmol/L (98-107); CREATININE 1.36 mg/dL (0.70-1.30); POTASSIUM 3.6 mmol/L (3.5-5.1); SGOT/AST 11 IU/L (3-35); SGPT/ALT 9 U/L (12-78); SODIUM 142 mmol/L (136-145); TOTAL PROTEIN 6.6 gm/dL (6.4-8.2)
[2018-11-06 19:28] LABS: TROPONIN I 0.022 ng/ml (<0.045)
[2018-11-06 19:29] LABS: INTERNATIONAL NORM RATIO 1.4 (2.0-3.5)
[2018-11-06 20:08] VITALS: BP 126/66
[2018-11-06 21:03] VITALS: BP 132/88
[2018-11-06 21:10] VITALS: BP 152/84; BP 157/84
[2018-11-06] MEDS ORDERED: COREG6.25 MG PO (23:09)
[2018-11-06] MEDS ORDERED: CYMBALTA30 MG PO (23:10)
[2018-11-06] MEDS ORDERED: Ipratropium Brom3 ML INH (23:12)
[2018-11-07] VITALS: BP 130/78
[2018-11-07 06:38] LABS: BUN 22 mg/dl (7-24); CHLORIDE 109 mmol/L (98-107); CREATININE 1.21 mg/dL (0.70-1.30); PHOSPHOROUS 3.1 mg/dL (2.5-4.9); POTASSIUM 3.4 mmol/L (3.5-5.1); SODIUM 142 mmol/L (136-145)
[2018-11-07 06:43] LABS: BASO % 0.3 % (0.0-1.0); EOS # 0.1 10*3/uL (0.0-0.4); EOS % 1.6 % (1.0-4.0); HEMATOCRIT 42.2 % (42.0-52.0); HEMOGLOBIN 13.3 g/dl (14.0-18.0); LYMPH # 1.3 10*3/uL (1.3-4.4); LYMPH % 21.4 % (27.0-41.0); MEAN CELL VOLUME 95.3 fl (80.0-94.0); MEAN CORPUSCULAR HGB CONC 31.5 g/dl (33.0-37.0); MEAN PLATELET VOLUME 9.9 fl (9.6-12.3); MONO # 0.8 10*3/uL (0.1-1.0); MONO % 12.4 % (3.0-9.0); NEUT # 3.9 10*3/uL (2.3-7.9); PLATELET COUNT AUTOMATED 191 10*3/uL (130-400); RED BLOOD COUNT 4.43 10*6/uL (4.50-5.90); RED CELL DISTRI WIDTH 13.5 % (0-14.5); WHITE BLOOD COUNT 6.1 10*3/uL (4.8-10.8)
[2018-11-07 08:00] VITALS: BP 146/73
[2018-11-07 12:00] VITALS: BP 122/73
[2018-11-07 15:29] LABS: BILIRUBIN NEGATIVE (NEGATIVE); BLOOD 2+ (NEGATIVE); CLARITY CLOUDY (CLEAR); COLOR YELLOW (YELLOW); GLUCOSE NEGATIVE (NEGATIVE); KETONE NEGATIVE (NEGATIVE); LEUKO ESTERASE 2+ (NEGATIVE); NITRITE POSITIVE (NEGATIVE); PH 7.5 (5.0-9.0); SPECIFIC GRAVITY 1.015 (1.005-1.030)
[2018-11-07 15:48] LABS: BACTERIA 4+; MUCOUS TRACE; RBC TNTC rbc/hpf (0-2); WBC TNTC wbc/hpf (0-5)
[2018-11-07 16:00] VITALS: BP 155/93
[2018-11-07 20:00] VITALS: BP 155/85
[2018-11-08] VITALS: BP 150/95
[2018-11-08 06:36] LABS: BUN 24 mg/dl (7-24); CHLORIDE 112 mmol/L (98-107); CREATININE 1.09 mg/dL (0.70-1.30); POTASSIUM 3.5 mmol/L (3.5-5.1); SODIUM 144 mmol/L (136-145)
[2018-11-08 06:47] LABS: BASO % 0.1 % (0.0-1.0); EOS # 0.2 10*3/uL (0.0-0.4); EOS % 3.1 % (1.0-4.0); HEMATOCRIT 40.6 % (42.0-52.0); HEMOGLOBIN 13.3 g/dl (14.0-18.0); LYMPH # 1.7 10*3/uL (1.3-4.4); LYMPH % 25.9 % (27.0-41.0); MEAN CELL VOLUME 93.5 fl (80.0-94.0); MEAN CORPUSCULAR HGB 30.6 pg (27.0-31.0); MEAN CORPUSCULAR HGB CONC 32.8 g/dl (33.0-37.0); MEAN PLATELET VOLUME 9.6 fl (9.6-12.3); MONO # 0.6 10*3/uL (0.1-1.0); MONO % 8.5 % (3.0-9.0); NEUT # 4.2 10*3/uL (2.3-7.9); PLATELET COUNT AUTOMATED 203 10*3/uL (130-400); RED BLOOD COUNT 4.34 10*6/uL (4.50-5.90); RED CELL DISTRI WIDTH 13.4 % (0-14.5); WHITE BLOOD COUNT 6.7 10*3/uL (4.8-10.8)
[2018-11-08 08:00] VITALS: BP 146/88
[2018-11-08 12:00] VITALS: BP 146/82
[2018-11-08 16:00] VITALS: BP 147/75
[2018-11-08 20:00] VITALS: BP 152/80
[2018-11-09] VITALS: BP 155/80
[2018-11-09 06:05] LABS: BASO % 0.3 % (0.0-1.0); EOS # 0.3 10*3/uL (0.0-0.4); EOS % 3.7 % (1.0-4.0); HEMATOCRIT 41.1 % (42.0-52.0); HEMOGLOBIN 13.2 g/dl (14.0-18.0); LYMPH # 1.8 10*3/uL (1.3-4.4); LYMPH % 25.3 % (27.0-41.0); MEAN CELL VOLUME 94.1 fl (80.0-94.0); MEAN CORPUSCULAR HGB 30.2 pg (27.0-31.0); MEAN CORPUSCULAR HGB CONC 32.1 g/dl (33.0-37.0); MEAN PLATELET VOLUME 9.3 fl (9.6-12.3); MONO # 0.5 10*3/uL (0.1-1.0); MONO % 7.5 % (3.0-9.0); NEUT # 4.5 10*3/uL (2.3-7.9); NEUT % 62.9 % (47.0-73.0); PLATELET COUNT AUTOMATED 198 10*3/uL (130-400); RED BLOOD COUNT 4.37 10*6/uL (4.50-5.90); RED CELL DISTRI WIDTH 13.3 % (0-14.5); WHITE BLOOD COUNT 7.1 10*3/uL (4.8-10.8)
[2018-11-09 06:06] LABS: BUN 22 mg/dl (7-24); CHLORIDE 111 mmol/L (98-107); CREATININE 1.21 mg/dL (0.70-1.30); POTASSIUM 3.3 mmol/L (3.5-5.1); SODIUM 146 mmol/L (136-145)
[2018-11-09 06:08] LABS: VANCOMYCIN TROUGH 13.8 ug/mL (10-20)
[2018-11-09 08:00] VITALS: BP 152/90
[2018-11-09] MEDS ORDERED: LEVAQUIN750 M1 PO (10:50)
[2018-11-09] MEDS ORDERED: Bactroban Oint22 GM NAS (10:50)
[2018-11-09] MEDS ORDERED: FLUCONAZOLE100 MG PO (10:50)
[2018-11-09 12:00] VITALS: BP 138/72
== END 2018-11-09 14:25 | DRG 871 ==
LOC: ED 18:31 → EDHOLD 20:36 → 4E 20:36
PROVIDERS: Internal Medicine Nephrology; Physician Assistant; Student in an Organized Health Care Education/Training Program; ADMIT Internal Medicine
PROC: BD11YZZ Fluoroscopy of Esophagus using Other Contrast (ICD-10-PCS; principal; 2018-11-07)
DX: A41.9 Sepsis, unspecified organism (principal); J18.1 Lobar pneumonia, unspecified organism; E43 Unspecified severe protein-calorie malnutrition; B37.0 Candidal stomatitis; J44.0 Chronic obstructive pulmonary disease with (acute) lower respiratory infection; I13.0 Hypertensive heart and chronic kidney disease with heart failure and stage 1 through stage 4 chronic kidney disease, or unspecified chronic kidney disease; I50.22 Chronic systolic (congestive) heart failure; E87.6 Hypokalemia; N18.3 Chronic kidney disease, stage 3 (moderate); D72.810 Lymphocytopenia; D53.9 Nutritional anemia, unspecified; Z66 Do not resuscitate; Z51.5 Encounter for palliative care; E87.8 Other disorders of electrolyte and fluid balance, not elsewhere classified; E03.9 Hypothyroidism, unspecified; I25.10 Atherosclerotic heart disease of native coronary artery without angina pectoris; N40.0 Benign prostatic hyperplasia without lower urinary tract symptoms; I48.2 Chronic atrial fibrillation; I87.8 Other specified disorders of veins; F03.90 Unspecified dementia, unspecified severity, without behavioral disturbance, psychotic disturbance, mood disturbance, and anxiety; Z22.322 Carrier or suspected carrier of Methicillin resistant Staphylococcus aureus; Z88.5 Allergy status to narcotic agent; Z95.5 Presence of coronary angioplasty implant and graft; Z82.49 Family history of ischemic heart disease and other diseases of the circulatory system; Z84.1 Family history of disorders of kidney and ureter; Z82.0 Family history of epilepsy and other diseases of the nervous system; Z79.899 Other long term (current) drug therapy; Z68.24 Body mass index [BMI] 24.0-24.9, adult